=== PATIENT | female | born 1990 | race Hispanic/Latino ===

== ENCOUNTER → 2016-10-23 | Outpatient (CLI) | payer OTHER ==
[~2016-10-23] MED LIST: /ONDA4TA OR; ACET65TA OR; BACT800T PO; CIPR500T19 OR; COLA100C PO; DEPO-PROVERA SC; IBUP-1114 PO; KEFL250C OR; LEVA500T OR; LEVO150T7 PO; LEVO175T2 PO; MAGN400T5 PO; MIRALEX PO; MOM30SS PO; MOTR200T44 PO; NO HOME MEDS; PAXI20TA3 PO; PHEN100T2 OR; PROM-190 PO; PYRI200T PO; TRAZ100T2 PO; TYLE325T5 PO; TYLENOL #3 OR; VICO5TAB OR; levaquin PO; motrin; motrin PO
[2016-10-23 19:05] LABS: FREE T4 1.59 NG/DL (0.76-1.46)
== END ==
LOC: M SMT 13:41
PROVIDERS: ATTEND Specialist
DX: O99.283 Endocrine, nutritional and metabolic diseases complicating pregnancy, third trimester (principal); E07.9 Disorder of thyroid, unspecified

== ENCOUNTER → 2017-11-25 | Outpatient (REF) | payer OTHER | LOC: M LAB REF 14:52 | DX: Z12.4 Encounter for screening for malignant neoplasm of cervix (principal) ==

== ENCOUNTER → 2017-11-25 | Outpatient (CLI) | payer OTHER ==
[2017-11-25 15:13] LABS: CHLAMYDIA DNA AMPLIFICATION NEGATIVE (NEGATIVE); GC DNA AMPLIFICATION NEGATIVE (NEGATIVE)
[2017-11-25 19:47] LABS: HEMATOCRIT 38.6 % (36.0-47.0); HEMOGLOBIN 12.1 g/dl (12.0-16.0); MEAN CORPUSCULAR HEMOGLOBIN 27.4 pg (27.0-33.0); MEAN CORPUSCULAR HGB CONC 31.3 g/dl (32.0-36.5); MEAN CORPUSCULAR VOLUME 87.3 fl (80.0-96.0); PLATELET COUNT, AUTOMATED 271 10^3/uL (150-450); RED BLOOD COUNT 4.42 10^6/uL (4.00-5.40); RED CELL DISTRIBUTION WIDTH 18.3 % (11.5-14.5); WHITE BLOOD COUNT 9.9 10^3/uL (4.0-10.0)
== END ==
LOC: M SMT 11:55
DX: N93.9 Abnormal uterine and vaginal bleeding, unspecified (principal)
CPT/HCPCS: 84443

== ENCOUNTER → 2017-12-05 | Outpatient (CLI) | payer OTHER | LOC: M RAD 14:27 | DX: N92.6 Irregular menstruation, unspecified (principal) | CPT/HCPCS: 76856 ==

== ENCOUNTER 2018-02-14 20:31 | Emergency (ER) | payer MEDICAID, SELFPAY, OTHER | END 2018-02-14 22:59 | disposition home or self-care (01) | LOC: M ED 20:31 | DX: S61.216A Laceration without foreign body of right little finger without damage to nail, initial encounter (principal); W26.0XXA Contact with knife, initial encounter; Y92.9 Unspecified place or not applicable; Y93.G3 Activity, cooking and baking; Y99.9 Unspecified external cause status; E03.9 Hypothyroidism, unspecified; Z79.899 Other long term (current) drug therapy; Z91.013 Allergy to seafood | CPT/HCPCS: 12001; 99284 ==

== ENCOUNTER 2018-04-29 22:20 | Emergency (ER) | payer MEDICAID | END 2018-04-30 00:37 | disposition left against medical advice (07) | LOC: M ED 22:20 | DX: L98.9 Disorder of the skin and subcutaneous tissue, unspecified (principal); Z53.21 Procedure and treatment not carried out due to patient leaving prior to being seen by health care provider ==

== ENCOUNTER → 2018-10-29 | Outpatient (CLI) | payer MEDICAID ==
[~2018-10-29] MED LIST changes: -COLA100C PO; +COLA100C5 PO
--- NOTE | 2018-10-29 15:03 | REP ---
ULTRASOUND LEFT BREAST: Real-time sonographic evaluation of the left breast is performed for a palpable lump in the left breast at about 9-o'clock position, present for a few weeks. Dense fibroglandular tissue is seen in this region. Note is made, however, of a hypoechoic solid appearing nodule at the 1-o'clock position about 1 cm from the nipple. Maximum diameter is about 1 cm. It is oval in shape and relatively homogeneous and well defined with increased through transmission. This probably represents a fibroadenoma. IMPRESSION: ACR 3 probably benign. No evidence of cystic or solid mass in the region of 9 to 10-o'clock left breast at the site of the reported palpable lump. However, at 1-o'clock there is a hypoechoic nodule 1 cm from the nipple with a maximum diameter of 1 cm. It is well defined and demonstrates increased through transmission and homogeneous echotexture. It probably represents a fibroadenoma. Recommend followup ultrasound in 6 months to ensure stability. Alternatively, if the patient desires, ultrasound guided biopsy could be performed for a definitive diagnosis. Electronically Signed by Jerry Ogden MD 10/29/2018 03:52 P
== END ==
LOC: M RAD 13:47
PROVIDERS: ATTEND Advanced Practice Midwife
DX: N63.0 Unspecified lump in unspecified breast (principal)

== ENCOUNTER 2018-12-16 23:39 | Emergency (ER) | payer MEDICAID ==
[~2018-12-16] VITALS: Ht 160 cm; Wt 51.8 kg
[2018-12-17] MEDS ORDERED: KETOROLAC 30 MG/ML VIAL (J1885) IV ONE (00:45)
[2018-12-17] MEDS ORDERED: MORPHINE 2 MG/ML 1ML SYRINGE (J2270) IV ONE (00:45)
[2018-12-17] MEDS ORDERED: CLINDAMYCIN 600 MG in APPROPRIATE DILUENT 1 EA IV ONE (00:45)
[2018-12-17 01:19] LABS: BASO % 0.2 % (0.0-1.0); EOS # 0.2 10^3/uL (0.0-0.50); EOS % 1.4 % (0.0-3.0); HEMATOCRIT 30.6 % (36.0-47.0); HEMOGLOBIN 10.1 g/dl (12.0-15.5); LYMPH # 2.5 10^3/uL (1.5-6.5); MEAN CORPUSCULAR HEMOGLOBIN 30.7 pg (27.0-33.0); MONO # 0.5 10^3/uL (0.0-0.8); NEUTROPHILS # 7.2 10^3/uL (1.8-7.7); PLATELET COUNT, AUTOMATED 254 10^3/uL (150-450); RED BLOOD COUNT 3.29 10^6/uL (4.00-5.40); WHITE BLOOD COUNT 10.4 10^3/uL (4.0-10.0)
[2018-12-17 01:39] LABS: ERYTHROCYTE SEDIMENTATION RATE 58 mm/hr (0-20)
[2018-12-17 01:40] LABS: BLOOD UREA NITROGEN 15 MG/DL (7-18); C REACTIVE PROTEIN QUANTITATIV < 0.30 MG/DL (0.00-0.30); CALCIUM LEVEL 8.4 MG/DL (8.5-10.1); CARBON DIOXIDE LEVEL 24 MEQ/L (21-32); CHLORIDE LEVEL 110 MEQ/L (98-107); CREATININE FOR GFR 0.92 MG/DL (0.55-1.30); GLOMERULAR FILTRATION RATE > 60.0 (>60); GLUCOSE, FASTING 79 MG/DL (70-100); POTASSIUM SERUM 3.9 MEQ/L (3.5-5.1); SODIUM LEVEL 141 MEQ/L (136-145)
[2018-12-17] MEDS ORDERED: NORCOTAB PO (02:14)
[2018-12-17] MEDS ORDERED: CLEO300C2 PO (02:14)
[2018-12-17] MEDS ORDERED: KETO10TAB PO (02:14)
[2018-12-17] MEDS ORDERED: NORCO 5/325MG TABLET (BULK FOR ED) PO ONE (02:15)
[2018-12-17 02:51] VITALS: BP 126/81
--- NOTE | 2018-12-17 09:08 | REP ---
RIGHT 5TH DIGIT: Four views of the right 5th digit are performed. There is significant soft tissue swelling of the 5th digit. There is no evidence of acute fracture, dislocation or intrinsic bone disease. Electronically Signed by Jerry Ogden MD 12/17/2018 03:57 P
== END 2018-12-17 02:52 | disposition home or self-care (01) ==
LOC: M ED 23:39
DX: M96.89 Other intraoperative and postprocedural complications and disorders of the musculoskeletal system (principal); F41.9 Anxiety disorder, unspecified; E05.00 Thyrotoxicosis with diffuse goiter without thyrotoxic crisis or storm; Z79.890 Hormone replacement therapy; Z91.013 Allergy to seafood
CPT/HCPCS: 73140; 80048; 85025; 85652; 86140; 87070; 87077; 87186; 87205; 96365; 96375; 99284; J1885; J2270

== ENCOUNTER → 2019-05-05 | Outpatient (CLI) | payer OTHER ==
[~2019-05-05] MED LIST changes: -/ONDA4TA OR; +CLEO300C2 PO; +HYDR-3715 PO; +KETO10TAB PO; +ONDA-1 OR
[2019-05-05 13:52] LABS: HCG, SERUM QUALITATIVE NEGATIVE (NEGATIVE)
[2019-05-05 14:03] LABS: FREE THYROXINE INDEX 0.1 % (1.3-4.8); T UPTAKE 24 % (30-39); THYROXINE (T4) < 0.5 UG/DL (4.5-12.0)
== END ==
LOC: M SMT 09:56
PROVIDERS: ATTEND Advanced Practice Midwife
DX: N92.6 Irregular menstruation, unspecified (principal); E07.9 Disorder of thyroid, unspecified; N87.0 Mild cervical dysplasia

== ENCOUNTER → 2019-07-14 | Outpatient (CLI) | payer OTHER ==
[2019-07-14 18:19] LABS: HEMATOCRIT 30.3 % (36.0-47.0); HEMOGLOBIN 10.1 g/dl (12.0-15.5); MEAN CORPUSCULAR HEMOGLOBIN 32.1 pg (27.0-33.0); MEAN CORPUSCULAR HGB CONC 33.3 g/dl (32.0-36.5); MEAN CORPUSCULAR VOLUME 96.2 fl (80.0-96.0); PLATELET COUNT, AUTOMATED 206 10^3/uL (150-450); RED BLOOD COUNT 3.15 10^6/uL (4.00-5.40)
[2019-07-14 18:41] LABS: CALCIUM LEVEL 8.8 MG/DL (8.5-10.1); CREATININE FOR GFR 1.45 MG/DL (0.55-1.30); FREE T4 0.1 NG/DL (0.76-1.46); GLOMERULAR FILTRATION RATE 45.8 (>60); MAGNESIUM LEVEL 2.1 MG/DL (1.8-2.4)
== END ==
LOC: M SMT 13:58
PROVIDERS: ATTEND Hospitalist
DX: E05.00 Thyrotoxicosis with diffuse goiter without thyrotoxic crisis or storm (principal); R00.2 Palpitations

== ENCOUNTER → 2019-07-29 | Outpatient (REF) | payer OTHER | LOC: M SFHCPLAZ 15:56 | DX: Z53.9 Procedure and treatment not carried out, unspecified reason (principal) ==

== ENCOUNTER → 2019-08-04 | Outpatient (CLI) | payer OTHER ==
[2019-08-04 14:00] LABS: APPEARANCE, URINE CLEAR (CLEAR); BACTERIA, URINE AUTO NEGATIVE (NEGATIVE); BILIRUBIN, URINE AUTO NEGATIVE (NEGATIVE); BLOOD, URINE BLOOD NEGATIVE (NEGATIVE); COLOR, URINE YELLOW (YELLOW); GLUCOSE, URINE (UA) AUTO NEGATIVE (NEGATIVE); KETONE, URINE AUTO NEGATIVE (NEGATIVE); LEUKOCYTE ESTERASE, URINE AUTO NEGATIVE (NEGATIVE); MUCUS, URINE SMALL (NEGATIVE); NITRITE, URINE AUTO NEGATIVE (NEGATIVE); PROTEIN, URINE AUTO NEGATIVE (NEGATIVE); RBC, URINE AUTO 1 /HPF (0-3); SPECIFIC GRAVITY URINE AUTO 1.018 (1.002-1.035); SQUAMOUS EPITHELIAL CELL UR AU 1 /HPF (0-6); UROBILINOGEN, URINE AUTO 0.2 mg/dL (0.0-2.0); WBC, URINE AUTO 4 /HPF (0-3)
[2019-08-06 14:17] LABS: C-PEPTIDE 1.8 ng/mL (1.1-4.4); INSULIN LEVEL 5.7 uIU/mL (2.6-24.9)
== END ==
LOC: M SMT 10:01
PROVIDERS: ATTEND Hospitalist
DX: R94.4 Abnormal results of kidney function studies (principal); R55 Syncope and collapse

== ENCOUNTER → 2019-08-23 | Outpatient (CLI) | payer OTHER ==
[2019-08-23 17:54] LABS: ALBUMIN 4.4 GM/DL (3.2-5.2); ALT/SGPT 19 U/L (12-78); BILIRUBIN,TOTAL 0.3 MG/DL (0.2-1.0); BLOOD UREA NITROGEN 21 MG/DL (7-18); CALCIUM LEVEL 9.1 MG/DL (8.5-10.1); CARBON DIOXIDE LEVEL 26 MEQ/L (21-32); CHLORIDE LEVEL 106 MEQ/L (98-107); CREATININE FOR GFR 0.96 MG/DL (0.55-1.30); FREE T4 0.95 NG/DL (0.76-1.46); GLOMERULAR FILTRATION RATE > 60.0 (>60); GLUCOSE, FASTING 102 MG/DL (70-100); POTASSIUM SERUM 3.8 MEQ/L (3.5-5.1); SODIUM LEVEL 139 MEQ/L (136-145); TOTAL PROTEIN 8.3 GM/DL (6.4-8.2)
== END ==
LOC: M PLALAB 11:52
PROVIDERS: ATTEND Hospitalist
DX: R00.2 Palpitations (principal); R94.4 Abnormal results of kidney function studies; E03.2 Hypothyroidism due to medicaments and other exogenous substances

== ENCOUNTER → 2019-10-05 | Outpatient (CLI) | payer OTHER ==
[2019-10-05 11:57] LABS: HEMATOCRIT 34.8 % (36.0-47.0); HEMOGLOBIN 11.4 g/dl (12.0-15.5); MEAN CORPUSCULAR HEMOGLOBIN 30.7 pg (27.0-33.0); MEAN CORPUSCULAR HGB CONC 32.8 g/dl (32.0-36.5); MEAN CORPUSCULAR VOLUME 93.8 fl (80.0-96.0); PLATELET COUNT, AUTOMATED 216 10^3/uL (150-450); RED BLOOD COUNT 3.71 10^6/uL (4.00-5.40)
[2019-10-05 13:37] LABS: FERRITIN 6 NG/ML (8-252); IRON (FE) 30 UG/DL (50-170)
== END ==
LOC: M PLALAB 10:25
PROVIDERS: ATTEND Physician Assistant
DX: D50.0 Iron deficiency anemia secondary to blood loss (chronic) (principal)

== ENCOUNTER → 2019-10-07 | Outpatient (REF) | payer OTHER ==
[2019-10-07 17:23] LABS: ALBUMIN 4.2 GM/DL (3.2-5.2); ALT/SGPT 12 U/L (12-78); BILIRUBIN,TOTAL 0.3 MG/DL (0.2-1.0); BLOOD UREA NITROGEN 13 MG/DL (7-18); CALCIUM LEVEL 8.8 MG/DL (8.5-10.1); CARBON DIOXIDE LEVEL 25 MEQ/L (21-32); CHLORIDE LEVEL 107 MEQ/L (98-107); CREATININE FOR GFR 0.94 MG/DL (0.55-1.30); FREE T4 0.69 NG/DL (0.76-1.46); GLOMERULAR FILTRATION RATE > 60.0 (>60); GLUCOSE, FASTING 76 MG/DL (70-100); POTASSIUM SERUM 4.3 MEQ/L (3.5-5.1); SODIUM LEVEL 139 MEQ/L (136-145)
== END ==
LOC: M SFHCPLAZ 13:31
DX: E03.2 Hypothyroidism due to medicaments and other exogenous substances (principal); D50.0 Iron deficiency anemia secondary to blood loss (chronic)

== ENCOUNTER → 2019-11-29 | Outpatient (CLI) | payer OTHER ==
[2019-11-29 14:06] LABS: FREE T4 0.91 NG/DL (0.76-1.46); THYROID STIMULATING HORMONE 30.6 uIU/ML (0.358-3.740)
== END ==
LOC: M PLALAB 11:09
PROVIDERS: ATTEND Hospitalist
DX: E03.2 Hypothyroidism due to medicaments and other exogenous substances (principal)

== ENCOUNTER 2020-05-07 14:05 | Emergency (ER) | payer OTHER ==
[~2020-05-07 14:05] MED LIST changes: +LIDOCAINE VISCOUS 2% SOLN 15ML UDC As Ordered ONE; +LIDOCAINE VISCOUS 2% SOLN 15ML UDC ONE
== END 2020-05-07 15:50 | disposition home or self-care (01) ==
LOC: M ED 14:05
DX: K04.7 Periapical abscess without sinus (principal); E03.9 Hypothyroidism, unspecified; Z79.899 Other long term (current) drug therapy

== ENCOUNTER 2020-05-19 05:58 | Emergency (ER) | payer OTHER ==
[~2020-05-19] VITALS: Ht 160 cm; Wt 51.8 kg
[~2020-05-19 05:58] MED LIST changes: -LIDOCAINE VISCOUS 2% SOLN 15ML UDC As Ordered ONE; -LIDOCAINE VISCOUS 2% SOLN 15ML UDC ONE
[2020-05-19] MEDS ORDERED: ESCI10TA2 (06:11)
[2020-05-19] MEDS ORDERED: PERC5TAB12 (06:11)
[2020-05-19] MEDS ORDERED: LEVO150T7 (06:11)
[2020-05-19] MEDS ORDERED: PENI500T (06:11)
[2020-05-19] MEDS ORDERED: LIDOCAINE 2% W/ EPINEPHRINE 1.7 ML DENTAL INJ SM ONE (07:30)
[2020-05-19 08:29] VITALS: BP 98/53
== END 2020-05-19 08:30 | disposition home or self-care (01) ==
LOC: M ED 05:58
DX: K08.89 Other specified disorders of teeth and supporting structures (principal); E03.9 Hypothyroidism, unspecified; Z91.013 Allergy to seafood; Z79.899 Other long term (current) drug therapy

== ENCOUNTER 2020-05-29 22:05 | Emergency (ER) | payer OTHER ==
[~2020-05-29] VITALS: Ht 160 cm; Wt 51.9 kg
[~2020-05-29 22:05] MED LIST changes: +ESCI10TA2; +LEVO150T7; +PENI500T; +PERC5TAB12
[2020-05-29 22:07] VITALS: BP 142/83
[2020-05-29] MEDS ORDERED: ACET650T61 PO (22:38)
[2020-05-29] MEDS ORDERED: NAPR-837 PO (23:52)
[2020-05-29] MEDS ORDERED: CLIN150C14 PO (23:52)
== END 2020-05-30 00:11 | disposition home or self-care (01) ==
LOC: M ED 22:05
DX: K04.7 Periapical abscess without sinus (principal); Z91.013 Allergy to seafood; Z79.899 Other long term (current) drug therapy

== ENCOUNTER 2020-06-09 23:58 | Emergency (ER) | payer OTHER ==
[~2020-06-09] VITALS: Ht 160 cm; Wt 51.2 kg
[~2020-06-09 23:58] MED LIST changes: +ACET650T61 PO; +CLIN150C14 PO; +NAPR-837 PO
[2020-06-10 00:35] LABS: HEMATOCRIT 36.8 % (36.0-47.0); HEMOGLOBIN 12.1 g/dl (12.0-15.5); MEAN CORPUSCULAR HEMOGLOBIN 29.8 pg (27.0-33.0); MEAN CORPUSCULAR HGB CONC 32.9 g/dl (32.0-36.5); MEAN CORPUSCULAR VOLUME 90.6 fl (80.0-96.0); PLATELET COUNT, AUTOMATED 341 10^3/uL (150-450); RED BLOOD COUNT 4.06 10^6/uL (4.00-5.40); WHITE BLOOD COUNT 11.4 10^3/uL (4.0-10.0)
[2020-06-10 00:39] LABS: ETHYL ALCOHOL (ETHANOL) 0.107 % (0.000-0.010)
--- NOTE | 2020-06-10 00:49 | REPVR ---
PROCEDURE INFORMATION: Exam: CT Head Without Contrast Exam date and time: 06/10/2020 12:04 AM Age: 30 years old Clinical indication: Injury or trauma; Fall; Initial encounter; Concussion / head injury and wound, open; Consciousness not specified; Forehead; Without residual foreign body TECHNIQUE: Imaging protocol: Computed tomography of the head without contrast. Radiation optimization: All CT scans at this facility use at least one of these dose optimization techniques: automated exposure control; mA and/or kV adjustment per patient size (includes targeted exams where dose is matched to clinical indication); or iterative reconstruction. COMPARISON: CT Head without contrast 10/14/2013 3:04 AM FINDINGS: Brain: Normal. No hemorrhage. Unremarkable white matter. No mass effect. Ventricles: Normal. No ventriculomegaly. Bones/joints: Unremarkable. No acute fracture. Sinuses: Mild mucosal thickening in the right maxillary sinus. Mastoid air cells: Visualized mastoid air cells are well aerated. Soft tissues: Unremarkable. IMPRESSION: No acute intracranial hemorrhage. Electronically signed by: Antelmo Campbell On 06/10/2020 00:48:42 AM
--- NOTE | 2020-06-10 00:51 | REPVR ---
PROCEDURE INFORMATION: Exam: CT Cervical Spine Without Contrast Exam date and time: 06/10/2020 12:04 AM Age: 30 years old Clinical indication: Neck pain; Patient HX: Fall; Additional info: Trauma TECHNIQUE: Imaging protocol: Computed tomography images of the cervical spine without contrast. Radiation optimization: All CT scans at this facility use at least one of these dose optimization techniques: automated exposure control; mA and/or kV adjustment per patient size (includes targeted exams where dose is matched to clinical indication); or iterative reconstruction. COMPARISON: No relevant prior studies available. FINDINGS: Vertebrae: No acute fracture. Normal alignment. C2-C3: No significant disc protrusion. No severe spinal canal stenosis. No significant neural foraminal narrowing. C3-C4: No significant disc protrusion. No severe spinal canal stenosis. No significant neural foraminal narrowing. C4-C5: No significant disc protrusion. No severe spinal canal stenosis. No significant neural foraminal narrowing. C5-C6: No significant disc protrusion. No severe spinal canal stenosis. No significant neural foraminal narrowing. C6-C7: No significant disc protrusion. No severe spinal canal stenosis. No significant neural foraminal narrowing. C7-T1: No significant disc protrusion. No severe spinal canal stenosis. No significant neural foraminal narrowing. Soft tissues: Unremarkable. Lungs: Lung apices are normal. IMPRESSION: No acute fracture. Electronically signed by: Antelmo Campbell On 06/10/2020 00:50:47 AM
[2020-06-10 00:58] LABS: BLOOD UREA NITROGEN 11 MG/DL (7-18); CALCIUM LEVEL 9.3 MG/DL (8.5-10.1); CARBON DIOXIDE LEVEL 24 MEQ/L (21-32); CHLORIDE LEVEL 110 MEQ/L (98-107); CREATININE FOR GFR 0.84 MG/DL (0.55-1.30); GLOMERULAR FILTRATION RATE > 60.0 (>60); GLUCOSE, FASTING 108 MG/DL (70-100); POTASSIUM SERUM 3.9 MEQ/L (3.5-5.1); SODIUM LEVEL 141 MEQ/L (136-145)
[2020-06-10] MEDS ORDERED: LIDOCAINE W/EPINEPHRINE 1% 20ML VIAL SC ONE (01:15)
[2020-06-10 02:17] VITALS: BP 110/61
== END 2020-06-10 02:18 | disposition home or self-care (01) ==
LOC: M ED 23:58
DX: S01.81XA Laceration without foreign body of other part of head, initial encounter (principal); W01.10XA Fall on same level from slipping, tripping and stumbling with subsequent striking against unspecified object, initial encounter; Y92.410 Unspecified street and highway as the place of occurrence of the external cause; F10.929 Alcohol use, unspecified with intoxication, unspecified; F17.210 Nicotine dependence, cigarettes, uncomplicated; Z91.013 Allergy to seafood
CPT/HCPCS: 12002; 36415; 70450; 72125; 80048; 85027; 99284; G0480

== ENCOUNTER 2020-06-12 01:46 | Emergency (ER) | payer OTHER ==
[~2020-06-12] VITALS: Ht 160 cm; Wt 50.0 kg
[2020-06-12] MEDS ORDERED: KETO10TAB PO (02:25)
[2020-06-12] MEDS ORDERED: KETOROLAC 30 MG/ML 1ML VIAL IM ONE (02:30)
[2020-06-12 03:00] VITALS: BP 113/76
== END 2020-06-12 03:15 | disposition home or self-care (01) ==
LOC: M ED 01:46
DX: K08.89 Other specified disorders of teeth and supporting structures (principal); Z91.013 Allergy to seafood
CPT/HCPCS: 84702; 96372; 99283; J1885

== ENCOUNTER 2020-06-17 01:49 | Emergency (ER) | payer OTHER ==
[~2020-06-17] VITALS: Ht 160 cm; Wt 50.9 kg
[2020-06-17] MEDS ORDERED: LEXA1TAB PO (02:02)
[2020-06-17] MEDS ORDERED: KEFL500C17 PO (02:56)
[2020-06-17] MEDS ORDERED: CEPHALEXIN 500 MG CAP PO ONE (03:00)
[2020-06-17] MEDS ORDERED: LIDOCAINE 2% MDV 20ML VIAL SC ONE (03:00)
--- NOTE | 2020-06-17 03:00 | REPVR ---
PROCEDURE INFORMATION: Exam: XR Right Hand Exam date and time: 06/17/2020 2:22 AM Age: 30 years old Clinical indication: Injury or trauma; Injury history: Car door; Initial encounter; Laceration; Right; Little finger TECHNIQUE: Imaging protocol: XR Right hand. Views: 3 or more views. COMPARISON: CR Hand, complete 09/26/2014 3:27 PM FINDINGS: Bones/joints: Acute 5th middle phalangeal fracture appears to extend to the proximal interphalangeal joint. Soft tissues: Laceration of the 5th finger. IMPRESSION: Laceration of the 5th finger. Acute 5th middle phalangeal fracture appears to extend to the proximal interphalangeal joint. Electronically signed by: Arturo Dickerson On 06/17/2020 02:59:30 AM
[2020-06-17 03:34] VITALS: BP 138/72
== END 2020-06-17 03:37 | disposition home or self-care (01) ==
LOC: M ED 01:49
DX: S62.606B Fracture of unspecified phalanx of right little finger, initial encounter for open fracture (principal); W23.1XXA Caught, crushed, jammed, or pinched between stationary objects, initial encounter; Y92.019 Unspecified place in single-family (private) house as the place of occurrence of the external cause; Z91.013 Allergy to seafood; Z79.899 Other long term (current) drug therapy

== ENCOUNTER 2020-09-10 20:51 | Emergency (ER) | payer OTHER ==
[~2020-09-10 20:51] MED LIST changes: +KEFL500C17 PO; +LEXA1TAB PO
[2020-09-10 20:55] VITALS: BP 131/83
== END 2020-09-10 22:00 | disposition home or self-care (01) ==
LOC: EDBD 20:51 → M ED 21:49
DX: F41.9 Anxiety disorder, unspecified (principal); Z79.899 Other long term (current) drug therapy

== ENCOUNTER 2020-10-18 10:16 | Emergency (ER) | payer OTHER ==
[~2020-10-18] VITALS: Ht 160 cm; Wt 58.5 kg
[~2020-10-18 10:16] MED LIST changes: -CLIN150C14 PO; +CLIN150C15 PO; +ESCI10TA16; -ESCI10TA2
--- OUTSIDE RECORDS SUMMARY | 2020-10-18 10:21 | CCD ---
Author Author [facility] Organization [facility] Address Unknown Phone Unavailable Care Team Providers Care Product Steward Name Role Phone Ramesh Robles PA Unavailable Unavailable RoblesRamesh weaver PA Unavailable Unavailable RoblesRamesh weaver PA Unavailable Unavailable Robles, L Mel PA Unavailable Unavailable Robles L Mel PA Unavailable Unavailable Robles, L Mel PA Unavailable Unavailable Robles, L Mel PA Unavailable Unavailable RoblesRamesh Mel PA Unavailable Unavailable Robles, L Mel PA Unavailable Unavailable Robles, L Mel PA Unavailable Unavailable Robles L Mel PA Unavailable Unavailable Robles, L Mel PA Unavailable Unavailable Robles, L Mel PA Unavailable Unavailable Robles, L Mel PA Unavailable Unavailable Robles, L Mel PA Unavailable Unavailable Robles, L Mel PA Unavailable Unavailable Robles, L Mel PA Unavailable Unavailable Robles, L Mel PA Unavailable Unavailable Robles, L Mel PA Unavailable Unavailable Robles, L Mel PA Unavailable Unavailable Robles, L Mel PA Unavailable Unavailable Robles, L Mel PA Unavailable Unavailable Robles, L Mel PA Unavailable Unavailable Robles, L Mel PA Unavailable Unavailable Robles, L Mel PA Unavailable Unavailable Robles, L Mel PA Unavailable Unavailable Robles, L Mel PA Unavailable Unavailable Robles, L Mel PA Unavailable Unavailable Robles, L Mel PA Unavailable Unavailable Robles, L Mel PA Unavailable Unavailable Robles, L Mel PA Unavailable Unavailable Robles, L Mel PA Unavailable Unavailable Robles, L Mel PA Unavailable Unavailable Robles, L Mel PA Unavailable Unavailable Robles, L Mel PA Unavailable Unavailable Robles, L Mel PA Unavailable Unavailable Olivier, M Barratt PA Unavailable Unavailable Olivier, M Barratt PA Unavailable Unavailable Olivier, M Barratt PA Unavailable Unavailable Olivier, M Barratt PA Unavailable Unavailable Olivier, M Barratt PA Unavailable Unavailable Olivier, M Barratt PA Unavailable Unavailable Olivier, M Barratt PA Unavailable Unavailable Olivier, M Barratt PA Unavailable Unavailable Olivier, M Barratt PA Unavailable Unavailable Olivier, M Barratt PA Unavailable Unavailable Olivier, M Barratt PA Unavailable Unavailable Olivier, M Barratt PA Unavailable Unavailable Olivier, M Barratt PA Unavailable Unavailable Olivier, M Barratt PA Unavailable Unavailable Olivier, M Barratt PA Unavailable Unavailable Olivier, M Barratt PA Unavailable Unavailable Olivier, M Barratt PA Unavailable Unavailable Olivier, M Barratt PA Unavailable Unavailable Olivier, M Barratt PA Unavailable Unavailable Olivier, M Barratt PA Unavailable Unavailable Olivier, M Barratt PA Unavailable Unavailable Olivier, M Barratt PA Unavailable Unavailable Olivier, M Barratt PA Unavailable Unavailable Olivier, M Barratt PA Unavailable Unavailable Olivier, M Barratt PA Unavailable Unavailable Olivier, M Barratt PA Unavailable Unavailable Olivier, M Barratt PA Unavailable Unavailable LETTIERE, A MARIA TERESA PA Unavailable Unavailable LETTIERE, A MARIA TERESA PA Unavailable Unavailable LETTIERE, A MARIA TERESA PA Unavailable Unavailable LETTIERE, A MARIA TERESA PA Unavailable Unavailable LETTIERE, A MARIA TERESA PA Unavailable Unavailable LETTIERE, A MARIA TERESA PA Unavailable Unavailable LETTIERE, A MARIA TERESA PA Unavailable Unavailable LETTIERE, A MARIA TERESA PA Unavailable Unavailable LETTIERE, A MARIA TERESA PA Unavailable Unavailable LETTIERE, A MARIA TERESA PA Unavailable Unavailable LETTIERE, A MARIA TERESA PA Unavailable Unavailable LETTIERE, A MARIA TERESA PA Unavailable Unavailable LETTIERE, A MARIA TERESA PA Unavailable Unavailable LETTIERE, A MARIA TERESA PA Unavailable Unavailable LETTIERE, A MARIA TERESA PA Unavailable Unavailable LETTIERE, A MARIA TERESA PA Unavailable Unavailable LETTIERE, A MARIA TERESA PA Unavailable Unavailable LETTIERE, A MARIA TERESA PA Unavailable Unavailable LETTIERE, A MARIA TERESA PA Unavailable Unavailable LETTIERE, A MARIA TERESA PA Unavailable Unavailable LETTIERE, A MARIA TERESA PA Unavailable Unavailable LETTIERE, A MARIA TERESA PA Unavailable Unavailable LETTIERE, A MARIA TERESA PA Unavailable Unavailable LETTIERE, A MARIA TERESA PA Unavailable Unavailable LETTIERE, A MARIA TERESA PA Unavailable Unavailable LETTIERE, A MARIA TERESA PA Unavailable Unavailable LETTIERE, A MARIA TERESA PA Unavailable Unavailable LETTIERE, A MARIA TERESA PA Unavailable Unavailable LETTIERE, A MARIA TERESA PA Unavailable Unavailable Re-disclosure Warning The records that you are about to access may contain information from federally-assisted alcohol or drug abuse programs. If such information is present, then the following federally mandated warning applies: This information has been disclosed to you from records protected by federal confidentiality rules (42 CFR part 2). The federal rules prohibit you from making any further disclosure of this information unless further disclosure is expressly permitted by the written consent of the person to whom it pertains or as otherwise permitted by 42 CFR part 2. A general authorization for the release of medical or other information is NOT sufficient for this purpose. The Federal rules restrict any use of the information to criminally investigate or prosecute any alcohol or drug abuse patient.The records that you are about to access may contain highly sensitive health information, the redisclosure of which is protected by Article 27-F of the [facility] Public Health law. If you continue you may have access to information: Regarding HIV / AIDS; Provided by facilities licensed or operated by the [facility] Office of Mental Health; or Provided by the [facility] Office for People With Developmental Disabilities. If such information is present, then the following [facility] mandated warning applies: This information has been disclosed to you from confidential records which are protected by state law. State law prohibits you from making any further disclosure of this information without the specific written consent of the person to whom it pertains, or as otherwise permitted by law. Any unauthorized further disclosure in violation of state law may result in a fine or senior living sentence or both. A general authorization for the release of medical or other information is NOT sufficient authorization for further disc losure. Family History Family Member Name Family Member Gender Family Member Status Date o f Status Description Data Source(s) Unknown Unknown Problem MEDENT ([facility]) Unknown Unknown Problem MEDENT ([facility]) Encounters Encounter Providers Location Date Indications Data Source(s ) Outpatient Attender: Jose SANTAMARIA Physical Therapy 10:45:00 AM EDT MEDENT ([facility]) [place] [address] 12/11/2019 12:00:00 AM EDT eCW1 ([facility]) Outpatient [id number] 11/25/2019 09:29:22 AM EST [facility] Outpatient Attender: MARIA TERESA hagen 10/29/2019 08:30:00 AM EST MEDENT ([facility] [place] [address] 10/25/2019 12:00:00 AM EST eCW1 ([facility]) [address] 10/25/2019 12:00:00 AM EST eCW1 ([facility]) [address] 10/13/2019 12:00:00 AM EST eCW1 ([facility]) Outpatient Attender: Mel Parikher: Sanjay SANTAMARIA SJJose [email or web address] 10/11/2019 09:41:03 AM EST - 10/11/2019 10:04:00 AM EST [facility] GME Resident [address] [place], [place] [id number] 10/07/2019 12:00:00 AM EST eCW1 ([facility]) [facility] [address] [address] 10/07/2019 12:00:00 AM EST eCW1 ([facility]) Outpatient Referrer: Mel PEREIRA-SJPTANYA 09:53:26 AM EST [facility] Outpatient Attender: Mel PEREIRA-SJPTANYA 01:11:36 PM EST - 09/17/2019 04:09:50 PM EST [facility] Medications Medication Brand Name Start Date Product Form Dose Route Admi nistrative Instructions Pharmacy Instructions Status Indications Reaction Description Data Source(s) 5-325 mg 06/22/2020 12:00:00 AM EDT tablet 12 TAKE ONE TABLET BY MOUTH EVERY 6 HOURS NEEDED FOR PAIN MAXIMUM DAILY DOSE = 4 TAKE ONE TABLET BY MOUTH EVERY 6 HOURS NEEDED FOR PAIN MAXIMUM DAILY DOSE = 4 SOLD: 06/23/2020 [facility] 800 mg 06/22/2020 12:00:00 AM EDT tablet 20 TAKE ONE TABLET BY MOUTH EVERY 6 HOURS WITH FOOD NEEDED FOR PAIN TAKE ONE TABLET BY MOUTH EVERY 6 HOURS W ITH FOOD NEEDED FOR PAIN SOLD: 06/23/2020 [facility] Cephalexin 500 MG Oral Capsule CEPHALEXIN 06/17/2020 12:00:00 AM EDT capsule 20 TAKE ONE CAPSULE BY MOUTH EVERY 12 HOURS TAKE ONE CAPS ULE BY MOUTH EVERY 12 HOURS SOLD: 06/19/2020 [facility] 10 mg 06/12/2020 12:00:00 AM EDT tablet 20 TAKE ONE TABLET BY MOUTH EVERY 6 HOURS NEEDED FOR PAIN TAKE ONE TABLET BY MOUTH EVERY 6 HOURS A S NEEDED FOR PAIN SOLD: 06/19/2020 [facility] 500 mg 05/30/2020 12:00:00 AM EDT tablet 30 TAKE ONE TABLET BY MOUTH TWICE A DAY WITH FOOD TAKE ONE TABLET BY MOUTH TWICE A DAY WITH FOOD SOLD: 05/30/2020 [facility] 150 mcg 05/30/2020 12:00:00 AM EDT tablet 30 TAKE ONE TABLET BY MOUTH EVERY DAY TAKE ONE TABLET BY MOUTH EVERY DAY SOLD: 07/15/2020 [facility] 150 mcg 05/30/2020 12:00:00 AM EDT tablet 30 TAKE ONE TABLET BY MOUTH EVERY DAY TAKE ONE TABLET BY MOUTH EVERY DAY SOLD: 06/04/2020 [facility] 150 mcg 05/30/2020 12:00:00 AM EDT tablet 30 TAKE ONE TABLET BY MOUTH EVERY DAY TAKE ONE TABLET BY MOUTH EVERY DAY SOLD: 08/18/2020 [facility] 150 mcg 05/30/2020 12:00:00 AM EDT tablet 30 TAKE ONE TABLET BY MOUTH EVERY DAY TAKE ONE TABLET BY MOUTH EVERY DAY SOLD: 09/30/2020 [facility] 500 mg 05/30/2020 12:00:00 AM EDT tablet 21 TAKE ONE TABLET BY MOUTH THREE TIMES A DAY TAKE ONE TABLET BY MOUTH THREE TIMES A DAY SOLD: 05/30/2020 [facility] Escitalopram 10 MG Oral Tablet ESCITALOPRAM OXALATE 04/27/2020 1 2:00:00 AM EDT tablet 30 TAKE ONE TABLET BY MOUTH EVERY D AY TAKE ONE TABLET BY MOUTH EVERY DAY SOLD: 05/30/2020 [facility] 20 mg 04/27/2020 12:00:00 AM EDT capsule,delayed release (DR/EC) 30 TAKE ONE CAPSULE BY MOUTH EVERY DAY TAKE ONE CAPSULE BY MOUTH EVERY DAY SOLD: 04/30/2020 [facility] Escitalopram 10 MG Oral Tablet ESCITALOPRAM OXALATE 04/27/2020 1 2:00:00 AM EDT tablet 30 TAKE ONE TABLET BY MOUTH EVERY D AY TAKE ONE TABLET BY MOUTH EVERY DAY SOLD: 04/30/2020 [facility] 150 mcg 12/13/2019 12:00:00 AM EDT tablet 30 TAKE ONE TABLET BY MOUTH EVERY MORNING ON AN EMPTY STOMACH TAKE ONE TABLET BY MOUTH EVERY MORNING O N AN EMPTY STOMACH SOLD: 04/11/2020 [facility] Levothyroxine Sodium 0.15 MG Oral Tablet Levothyroxine Sodium 150 MCG Levothyroxine Sodium 150 MCG 12/13/2019 12:00:00 AM EDT active 1 tablet in the morning on an empty stomach eCW1 ([facility]) 150 mcg 12/13/2019 12:00:00 AM EDT tablet 30 TAKE ONE TABLET BY MOUTH EVERY MORNING ON AN EMPTY STOMACH TAKE ONE TABLET BY MOUTH EVERY MORNING O N AN EMPTY STOMACH SOLD: 12/18/2019 [facility] 150 mcg 12/13/2019 12:00:00 AM EDT tablet 30 TAKE ONE TABLET BY MOUTH EVERY MORNING ON AN EMPTY STOMACH TAKE ONE TABLET BY MOUTH EVERY MORNING O N AN EMPTY STOMACH SOLD: 02/25/2020 [facility] Oseltamivir 75 MG Oral Capsule Oseltamivir Phosphate 10/29/2019 12:00:00 AM EST ORAL active MEDENT ( [facility]) 75 mg 10/29/2019 12:00:00 AM EST capsule 10 TAKE ONE CAPSULE BY MOUTH TWICE A DAY FOR 5 DAYS TAKE ONE CAPSULE BY MOUTH TWICE A DAY FOR 5 DAYS SOLD: 10/31/2019 [facility] 100 mcg 10/26/2019 12:00:00 AM EST tablet 30 TAKE ONE TABLET BY MOUTH EVERY MORNING ON AN EMPTY STOMACH TAKE ONE TABLET BY MOUTH EVERY MORNING O N AN EMPTY STOMACH SOLD: 10/28/2019 [facility] Levothyroxine Sodium 0.1 MG Oral Tablet Levothyroxine Sodium 100 MCG Levothyroxine Sodium 100 MCG 10/25/2019 12:00:00 AM EST active 1 tablet in the morning on an empty stomach eC1 ([facility]) Levothyroxine Sodium 0.1 MG Oral Tablet Levothyroxine Sodium 100 MCG Levothyroxine Sodium 100 MCG 10/25/2019 12:00:00 AM EST active 1 tablet in the morning on an empty stomach eCW1 ([facility]) 75 mcg 10/08/2019 12:00:00 AM EST tablet 30 TAKE ONE TABLET BY MOUTH EVERY MORNING ON EMPTY STOMACH TAKE ONE TABLET BY MOUTH EVERY MORNING O N EMPTY STOMACH SOLD: 10/11/2019 [facility] 325 mg (65 mg iron) 10/08/2019 12:00:00 AM EST tablet 30 TAKE 1 TABLET BY MOUTH ON Friday AND FRIDAY TAKE 1 TABLET BY MOUTH ON AND FRIDAY SOLD: 10/11/2019 [facility] 75 mcg 07/17/2019 12:00:00 AM EDT tablet 30 TAKE ONE TABLET BY MOUTH EVERY MORNING ON AN EMPTY STOMACH TAKE ONE TABLET BY MOUTH EVERY MORNING O N AN EMPTY STOMACH SOLD: 08/23/2019 [facility] Insurance Providers Payer name Policy type / Coverage type Policy ID Covered libertarian ID Covered libertarian's relationship to live Policy Live Plan Information [facility] [id number] SP [id number] [facility] O [id number] S [id number] [facility] [id number] SP [id number] [facility] [id number] Emmie [id number] MVP MCDO [id number] SP [id number] [employer] Maintenance Organization (HMO) [id number] Self [id number] [employer] (HMO) [id number] Self [id number] MEDICAID [id number] SP [id number] MVP I [id number] Self [id number] MVP I [id number] Self [id number] MVP Medicaid Health Maintenance Organization (HMO) [id number] Self [id number] MVP Medicaid Commercial [id number] Self [id number] MEDICAID M [id number] Self [id number] [employer] Health Maintenance Organization (HMO) [id number] Self [id number] Medicaid [place] Medicaid [id number] Self [id number] MVP I [id number] Self [id number] MVP I [id number] Self [id number] SELF PAY ONLY [id number] SP [id number] MVP MCDHMO [id number] SP [id number] MVP HEALTH CARE O [id number] S [id number] MVP MCDO [id number] SP [id number] MVP Medicaid Health Maintenance Organization (HMO) [id number] Self [id number] [employer] Health Maintenance Organization (HMO) [id number] Self [id number] [facility] COMMUN[employer] PLAN MCDHMO [id number] SP [id number] [facility] Health Maintenance Organization (HMO) Self [employer] COMMUNITY PLAN MCDHMO [id number] SP [id number] [facility] COMMUN[employer] PLAN MCDO [id number] SP [id number] SELF PAY UNAVAILABLE UNAVAILA BLE MEDICAID [id number] SP [id number] [facility] [id number] SP [id number] Problems, Conditions, and Diagnoses Code Display Name Description Problem Type Effective Dates Data Source(s) D50.0 [id number] Iron deficiency anemia due to chronic blo od loss Problem 10/07/2019 12:00:00 AM EST eCW1 ([facility]) R55 Syncope and collapse Syncope and collapse Diagnosis 10/11/2019 09:41:03 AM [facility] R00.2 Palpitations Palpitations Diagnosis 10/11/2019 09:41:03 A M [facility] E03.9 Hypothyroidism, unspecified Hypothyroidism, unspecifie d Diagnosis 09/17/2019 01:11:36 PM [facility] F17.200 Nicotine dependence, unspecified, uncomp licated Nicotine dependence, unspecified, uncomp Diagnosis 09/17/2019 01:11:36 PM [facility] R07.89 Other chest pain Other chest pain Diagnosis 09/17/2019 01 :11:36 PM [facility] R06.02 Shortness of breath Shortness of breath Diagnosis 1 11/18/2018 01:11:36 PM [facility] 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 Surgeries/Procedures Procedure Description Date Indications Data Source(s) RADEX WRIST COMPLETE MINIMUM 3 VIEWS 10/11/2020 12:00: 00 AM EST MEDENT ([facility]) RADEX FINGR MINIMUM 2 VIEWS 07/12/2020 12:00:00 AM EDT MEDENT ([facility]) RADEX FINGR MINIMUM 2 VIEWS 07/12/2020 12:00:00 AM EDT MEDENT ([facility]) RADEX FINGR MINIMUM 2 VIEWS 06/28/2020 12:00:00 AM EDT MEDENT ([facility]) CLTX PHLNGL FX PROX/MIDDLE PX/F/T W/O MANJ EA 06/20/20 12:00:00 AM EDT MEDENT ([facility]) Results ID Date Data Source [id number] 10/11/2019 12:41:19 PM [facility] Name Value Range Interpretation Code Description Data Azalea rce(s) Supporting Document(s) &PDF [facility] ZVXMKo7vMqLTQpAd19/KWVruOUKzq6QnXCrwTHj2GBwlCKXkF1CfaXqlDYOQJTHTQhkSZHvTR3BWQC7x oRX RmKjZFoTH9JM8xVBTykdQqkvE6nF1oFL3BJNQ+Ro3SSZ4fd3IeYPd0WNRid2IoBRwdQLb6I7FzaXXjfw IqTtsyeWJXSVBvMJWsQ5gdmdn8yUZoKZE4Zb5VWdRzp4ErXCOyZJpLnr8mL2/bRhZ+X2D/wwCLBVLAiX i/eXvZUbwqtronFmLbgzAWkONPHvkQicakwb2jyiLR Ol/od9D9WKWMiWH41br2N9kfDCwG7e4+gRckq2fQFt5pe4dyh29h3h//YEdyCOtU6tKmsSi0eiFhh4bT kHCDOt0SPf22TzhLnm9P8iy6fR7EzBRz+PlP1/4W/mEPEW3o/xnGZxj18aa43VyHFRwrQ181TiYw4zTV ZK4KIIRIGwlFYpFXMltvBXg1sFoelEmdHh9foViQQB /lmrLiyII/JOFlmjZ1Vp12+mnth7Q133xmwjzglwfyUgvKUQlfDkcQzJoTSGh35OvXY9OQ+ZtowcAzMX UdTa0FMite2kU/eAqkhTxxocLai7tW9M7HqljauaNsksNoBgE3OPDdAocGMEiqJI8zGrS5oCvMlHSMYt I5Sc4GYrMs+KSj1wdberhrxo78qA7Gnm0B9c3ICkPg HET+u5/17vPWjb90PtXdnXMrLkrbirhbmIUxGp6MHWY1my5jT2+egyFSt41AHMabaN4gcsV54GYK7fyS cPIlwiGrvqP3Lp0/tuiNqbYEc3bhQCmEhivBdzNGkoivRzHzELqEnHiZcxgjWMta6SKH/VJSaEkTS569 XLUuXKz1lR8iuyIUP/qhHo7iImld7SlkuyPbfjWyQ9 20s1bunPO7Z0A7M9KjZABHeOMGDwPqbCQzaVk6XyR3f8fRK2/PXGxACZxK3FWkxA5OghAxkdtw/Yeoey eAnSIzA4K/tO2BALMUoYh1MAJNzHIG6WBQ6vMGhAUDuYYwGGFcD5XToQQfumeGlVAa+HKkzwDdF0/Byron qWyeMJ5V+deLA3WXM0psJiu+S6pQolgohFpCsUWouD mI7ZsaLRo1HzIcVWHhPnlQXSkgnnubNDFlkO/bSyB3/VMSJ/5B8NVDc9Bb8dNgWqPUsVNxbj9SRL1cah B2x899Zq9zlY+ZBtCDFAOJfuVuZT8u14luCzowkeV17t3mzyzNxrSB9vJXyLyRZXRCtPtYN5xnUlBJby 7AZMmlIM3xA8VQIrKYadP2zXKWDTT838VJEULIbFw2 itrEfUQ47wl30RlAu1OgY5mMSrEihzWO1u6ipPtX4J9PKSQ6lPltA/qpy3Tlx6xAEfgBI85iVkMPJIWk AgB+Do4sU0Z5BFEAB22KhUUoJYtSbZClSZSh4EmkOxFzxSCBVcnrdrlhs+uXOdtATgCyUYdP5A//7ScI WWRSSYotcfHUDFIFECK3xnpEG2OMNX6UeB9lcsrpCe [file] AgICAgICAgICAgICAgICAgICAgICAgICAgICAgICAg ICAgICAgICAgICAgICAgICAgICAgICAgICAgICAgICAgICAgICAgICAgICAgICAgICAgICAgICAgICAg PTPxRUDyJU2CXVTaVGQaKIFkLHEpWUNlDURlLUNiJMWdORMqARFaPDWzWLSbJNSaAHEpVLDyFZCrGZIj ICAgICAgICAgICAgICAgICAgICAgICAgICAgICAgIC OiWQQwHAWmXWRsTLVoVPSnVX4COYNuKBRwJKFvVWLzFDGuZRXnQZIiSEZeSUMlXLZcRWKzDRKqJZRoHW AgICAgICAgICAgICAgICAgICAgICAgICAgICAgICAgICAgICAgICAgICAgICAgICAgICAgICAgICAgIA 0KICAgICAgICAgICAgICAgICAgICAgICAgICAgICAg ICAgICAgICAgICAgICAgICAgICAgICAgICAgICAgICAgICAgICAgICAgICAgICAgICAgICAgICAgICAg LUCgLZJuDMDfBZ0VOUIqOAOjFMTfFQFnAYCsDKSgGWNiSIFgBVMdUTAvNNXcRPFdQIQgBVLhBFJwXBSv ICAgICAgICAgICAgICAgICAgICAgICAgICAgICAgIC XkJXArOSDxUGCyYAVbNMJhMRJeJD4VZDVqROPrOGJiWTCgLQOmWQGxROAxPZOcOCTaCMVgJQFfOHQaRG AgICAgICAgICAgICAgICAgICAgICAgICAgICAgICAgICAgICAgICAgICAgICAgICAgICAgICAgICAgIC ItJJ2XJSGcAJArBZSnHGLkMDGiIFKhRCPlENCaMNYi ICAgICAgICAgICAgICAgICAgICAgICAgICAgICAgICAgICAgICAgICAgICAgICAgICAgICAgICAgICAg ZXOuRNHtYJGiSOCwXE5EXIPbHEKzWVWbWZHxBFDnTPIbSEHqGSOnSLAcXXGrRDEyLELxGXYaRENdKURv ICAgICAgICAgICAgICAgICAgICAgICAgICAgICAgIC BxWGMgLRWrWDDpLGKqADIxXLDbDEGyJO4PXBNsGKWrOUCySAXpWBQtMEMgDYBxLUGvFJXuRIWwVBNvRY AgICAgICAgICAgICAgICAgICAgICAgICAgICAgICAgICAgICAgICAgICAgICAgICAgICAgICAgICAgIC FtDNQsRG7LGQRjYRJaGOHsAQDhUZDqUQUdSPEnQOBt ICAgICAgICAgICAgICAgICAgICAgICAgICAgICAgICAgICAgICAgICAgICAgICAgICAgICAgICAgICAg UWGoHLGuOIYlTWVhHBBdPM9AXM52jTGia2B5AKKhIA8vfqy/Jo0YAZsfzwWauNQnNU4GDaZcCO2ffv1W LyWjUC1izb5TACvGIeCbC2B8vPAwDLEiMYFMMwJzV7 7dSZshCv09QXpkSQFxZqCqYOy1Tw1ZOvAuX6pbXCLbQpO0NTNgMtU8GPPwMlYrCNwlLK8As7IufTYkSY o+Ba9ABZ0ch7RmSVbkBWInHF3klt0CPQbFTePvA1O3jAJjJ1K0OKwtFm8UKPDdOISfWVtcGUYSZWubBK 9LRQ9qjpE5OQ5IiFHsGQXnFCZikTLpOTz5H60lqSMk VWotQB2PEDQ+Idania+Iu9KVCNcHYFeALMgOaSmCHUQVzQuY04yeEKsNONmOHFzZLWaJx0SPSTwX2PtwtTo vPxtubXbLODcLGKLEB2FJHajfvHtbOCxwFnbIR98pFzgEK3ULf5RBuXeOO8mav4WsRVePy0KVCRxWf8C BKIrNSOtATZtUSK8FUNbEsLlORbeXKIxIYTfHXI7DL GmDTMpFM3KUzThBDEyPAj8UtQlKKZcAOVymf1NUZLsEZGvGZPdLaRvXBRuSMErPCarXQBxBXVsOVkgMH ToWQHjXR9TUrNqYSZgQFYjIUQrFXAwOPJjns6ULQMpJURqVqKxZAEzOOQxHIVnKJhmCYTkEOM8Kxe8VR YaCQGhTI0GUxXfFVQqURQkHCJuVREjXCArrp8OSXBf APXfMSg2TIZfIMEsIEQhYViyDUHvFNX4GHNtJOQaOYYwDB8KFfRcQEVoUZElZYfjOHVoJIUbhm7FSLNj NWClHzBsNfRsNBIcJDApPCqxFDQzBVF8VUA1MEOeSGLzDN4LRvRtJAAqGKv1SVkcOVFtMLErqm6JJUYr ZJCyAZQ2ZZKxDQPwDQYxGNcaOVJsGHJ8LDR6UPUyOA QdME7ULhBuCEZvYDmgWbQwSZFhZLQmgi0EFTDmRRHdRKraWpBqXSMsYXLvSWrcZQPzDIH4NgXnZYOvTH YkTB9VFrChVBIiIOcxYjFkOMAbPUEfki6NBPUqPPHdIYJcChZxFFNrRDGxJHt0uuEfaGNgDQw0CY4EV2 ZryhXnVcCISf2Do109EOHgBDPhVz4JE2ueLf8oVPBe UBLDHi0CNKe5MbHeIBg7O1YmYDKeIFChRpJsZAJxEJx6CfUyJttvTQN+ZOcaP5W5JTy0RnMwCRS7QGIv OrIlA7HnIexqMdGbQMGbJv4tNFQZIo7+GMizjOXwiEscSEFXEzE1CQUcTRdsHIVRZd3U ID Date Data Source [id number] 09/30/2019 06:11:45 PM EST [facility] Name Value Range Interpretation Code Description Data Azalea rce(s) Supporting Document(s) &PDF [facility] JISUUq6cSfBIUmPo10/FEYpuBIDix6BpIVdyGDb6CKskXJAcU0VclPhkZNEQJGSUPpgZACgZQ4GRXE9m FcG [file] YNCg== ID Date Data Source TSH 08/23/2019 12:00:00 AM EST eCW1 ([facility]) Name Value Range Interpretation Code Description Data Azalea rce(s) Supporting Document(s) 17.300 0.358-3.740 THYROID STIMULATING HORM ONE eCW1 ([facility]) ID Date Data Source FREE T4 08/23/2019 12:00:00 AM EST eCW1 ([facility]) Name Value Range Interpretation Code Description Data Azalea rce(s) Supporting Document(s) 0.95 0.76-1.46 FREE T4 W1 ([facility]) ID Date Data Source METANEPHRINES TOTAL PLASMA 08/23/2019 12:00:00 AM EST eCW1 ( [facility]) Name Value Range Interpretation Code Description Data Azalea rce(s) Supporting Document(s) 58 0-62 METANEPHRINE PLASMA eCW1 ([facility]) 201 0-145 NORMETANEPHRINE PLASMA eCW1 ([facility]) ID Date Data Source Comprehensive Metabolic Profile (CMP) 08/23/2019 12:00:00 AM EST eCW1 ([facility]) Name Value Range Interpretation Code Description Data Azalea rce(s) Supporting Document(s) 21 7-18 BLOOD UREA NITROGEN eCW1 ([facility]) 0.96 0.55-1.30 CREATININE FOR GFR eCW1 ([facility]) 102 70-100 GLUCOSE, FASTING eCW1 ([facility]) 3.8 3.5-5.1 POTASSIUM SERUM eCW1 ([facility] hospital) 139 136-145 SODIUM LEVEL eCW1 ([facility]) > 60.0 >60 GLOMERULAR FILTRATION RATE eCW 1 ([facility]) 17 7-37 AST/SGOT eCW1 ([facility]) 26 21-32 CARBON DIOXIDE LEVEL eCW1 ([facility]) 106 98-107 CHLORIDE LEVEL eCW1 ([facility]) 9.1 8.5-10.1 CALCIUM LEVEL eCW1 ([facility]) 54 45-117 ALKALINE PHOSPHATASE eCW1 ([facility]) 8.3 6.4-8.2 TOTAL PROTEIN eCW1 ([facility]) 19 12-78 ALT/SGPT eCW1 ([facility]) 0.3 0.2-1.0 BILIRUBIN,TOTAL eCW1 ([facility]) 4.4 3.2-5.2 ALBUMIN eCW1 ([facility]) 1.13 1.00-1.93 ALBUMIN/GLOBULIN RATIO eCW1 ([facility]) Procedure Vital Signs ID Date Data Source UNK Name Value Range Interpretation Code Description Data Source(s) Body temperature 98.0 [degF] 98.0 [degF] MEDENT ([facility] ) Body mass index (BMI) [Ratio] 20.4 kg/m2 20.4 k g/m2 MEDENT ([facility] ) Body weight 115.00 [lb_av] 115.00 [lb_av] MEDEN T ([facility] ) Body height 63 [in_i] 63 [in_i] MEDENT ([facility] ) 5'3" Body temperature 97.3 [degF] 97.3 [degF] MEDENT ([facility] ) Body mass index (BMI) [Ratio] 20.2 kg/m2 20.2 k g/m2 MEDENT ([facility], [facility]) Body height 63 [in_i] 63 [in_i] MEDENT ([facility], [facility]) 5'3" Body weight 114.00 [lb_av] 114.00 [lb_av] MEDEN T ([facility], [facility]) Body temperature 98.7 [degF] 98.7 [degF] MEDENT ([facility], [facility]) Oxygen saturation in Arterial blood by Pulse oximetry 98 % 98 % MEDENT ([facility], [facility]) Respiratory rate 18 /min 18 /min MEDENT ( [facility], [facility]) Heart rate 79 /min 79 /min MEDENT ([facility], [facility]) Diastolic blood pressure 68 mm[Hg] 68 mm[Hg] MEDENT ([facility], [facility]) Systolic blood pressure 102 mm[Hg] 102 mm[Hg] EDENT ([facility], [facility]) Body temperature 18 [degF] 18 [degF] eCW1 ([facility]) Respiratory rate 70 /min 70 /min eCW1 ([facility]) Body mass index (BMI) [Ratio] 18.78 kg/m2 18.78 kg/m2 W1 ([facility]) Body height 63 [in_us] 63 [in_us] eCW1 ([facility]) Body weight Measured 106 [lb_av] 106 [lb_av] eC W1 ([facility]) Patient Treatment Plan of Care Planned Activity Planned Date Details Description Data Source (s) Levothyroxine Sodium 0.15 MG Oral Tablet 12/13/2019 12:00:00 AM EDT eCW1 ([facility]) Levothyroxine Sodium 0.1 MG Oral Tablet 10/25/2019 12:00:00 AM EST eCW1 ([facility]) Levothyroxine Sodium 0.1 MG Oral Tablet 10/25/2019 12:00:00 AM EST eCW1 ([facility])
--- OUTSIDE RECORDS SUMMARY | 2020-10-18 10:21 | CCD ---
Continuity of Care Document (CCD) Created on: 10/11/2020 Leti Barrett External Reference #: [id number] : 1990 Sex: Female Author Author Leti OLIVIER Organization Unknown Address [address] [place] [address] Phone [phone] Care Team Providers Care Gelatin Maker Utility Name Role Phone Faheem Morrow DO AUTM [phone] Santosh Menjivar MD AUTHerman Unavailable Problems Description No Information Available Social History Type Date Description Comments Sex Unknown ETOH Use Rarely consumes alcohol Tobacco Use Start: Unknown Denies Smoking Smoking Status Reviewed: 04/28/19 Denies Smoking Allergies, Adverse Reactions, Alerts Description No Known Drug Allergies Medications Active Medications SIG Qnty Indications Ordering Provide r Date Levothyroxine Sodium 200mcg/5ML So lution Valerio Rosen MD 04/28/2019 Lexapro 10mg Tablets 1 by mouth every day Unknown Immunizations Description No Information Available Vital Signs Date Vital Result Comment 07/12/2020 3:16pm Body Temperature 98.0 F 06/20/2020 11:22am Body Temperature 97.3 F Height 63 inches 5'3" Weight 115.00 lb BMI (Body Mass Index) 20.4 kg/m2 Results Description No Information Available Procedures Date Code Description Status 10/11/2020 72890 X-Ray Wrist Complete Completed 07/12/2020 46774 X-Ray Finger(S) Two Views Comple alina 06/28/2020 44661 X-Ray Finger(S) Two Views Comple alina 06/20/2020 87914 FX Phalanx Shaft/Prox/Mid Finger /Thumb W/O Manipulation Completed Medical Devices Description No Information Available Encounters Type Date Location Provider Dx Diagnosis Office Visit 06/20/2020 10:45a [place] Jose Olivier PA-C S6 1.226A Laceration w fb of r little finger w/o damage to nail, init S62.656A Nondisp fx of middle phalanx of right little finger, init Assessments Date Code Description Provider 10/11/2020 S62.656D Nondisplaced fractur e of middle phalanx of right little finger, subsequent encounter for fracture with routine healing Jose Olivier PA-C 07/12/2020 S62.656D Nondisplaced fractur e of middle phalanx of right little finger, subsequent encounter for fracture with routine healing Jose Olivier PA-C 06/28/2020 S61.226D Laceration with fore ign body of right little finger without damage to nail, subsequent encounter Jose Olivier PA-C 06/28/2020 S62.656D Nondisplaced fractur e of middle phalanx of right little finger, subsequent encounter for fracture with routine healing Jose Olivier PA-C 06/20/2020 S61.226A Laceration with fore ign body of right little finger without damage to nail, initial encounter Jose Olivier PA-C 06/20/2020 S62.656A Nondisplaced fractur e of middle phalanx of right little finger, initial encounter for closed fracture Jose Olivier PA-C Plan of Treatment 10/11/2020 - Jose Olivier PA-C* S62.656D Nondisplaced fracture of middle phalanx of right little finger, subsequent encounter for fracture with routine healing* New Xrays:* MRI RT Wrist, Ordered: 10/11/20 * Follow up:* with BMS for rt hand mri results [facility] BOOK IT Functional Status Description No Information Available Mental Status Description No Information Available Referrals Refer to Reason for Referral Status Appt Date Jose Olivier PA-C DME NO AUTH REQUIRED FOR APO LLO WRIST BRACE ([id number]) TO OUMAR NT Created [address] [place] [address] [address] [place] [id number] [phone]
--- OUTSIDE RECORDS SUMMARY | 2020-10-18 10:21 | CCD | Continuity of Care Document ---
Author Author Leti OLIVIER Organization Unknown Address [address] [place] [address] Phone [phone] Care Team Providers Care Equipment Service Technician Name Role Phone Faheem Morrow DO AUTM [phone] Santosh Menjivar MD AUTHerman Unavailable Problems Description [...] Information Available Procedures Date Code Description Status 07/12/2020 35764 X-Ray Finger(S) Two Views Comple alina 06/28/2020 63359 X-Ray Finger(S) Two Views Comple alina 06/20/2020 37478 FX Phalanx Shaft/Prox/Mid Finger /Thumb W/O Manipulation Completed Medical Devices Description No Information Available Encounters Type Date Location Provider Dx Diagnosis Office Visit 06/20/2020 10:45a [place] Olivier PA-C S6 1.226A Laceration w fb of r little finger w/o damage to nail, init S62.656A Nondisp fx of middle phalanx of right little finger, init Assessments Date Code Description Provider 07/12/2020 S62.656D Nondisplaced fractur e of middle [...] fracture Jose Olivier PA-C Plan of Treatment 07/12/2020 - Jose Olivier PA-C* S62.656D Nondisplaced fracture of middle phalanx of right little finger, subsequent encounter for fracture with routine healing* Follow up:* prn Functional Status Description No Information Available Mental Status Description No Information Available Referrals Description No Information Available
[2020-10-18] MEDS ORDERED: NS 1,000 ML IV ONE (10:45)
[2020-10-18 11:18] LABS: BASO % 0.2 % (0.0-1.0); HEMATOCRIT 37.8 % (36.0-47.0); HEMOGLOBIN 12.5 g/dl (12.0-15.5); LYMPH # 0.7 10^3/uL (1.5-5.0); LYMPH % 5.1 % (24.0-44.0); MEAN CORPUSCULAR HEMOGLOBIN 29.6 pg (27.0-33.0); MEAN CORPUSCULAR HGB CONC 33.1 g/dl (32.0-36.5); MEAN CORPUSCULAR VOLUME 89.6 fl (80.0-96.0); MONO % 7.5 % (0.0-5.0); NEUTROPHILS # 11.1 10^3/uL (1.5-8.5); NEUTROPHILS % 86.9 % (36.0-66.0); PLATELET COUNT, AUTOMATED 228 10^3/uL (150-450); RED BLOOD COUNT 4.22 10^6/uL (4.00-5.40); WHITE BLOOD COUNT 12.8 10^3/uL (4.0-10.0)
--- OUTSIDE RECORDS SUMMARY | 2020-10-18 11:18 | CCD ---
Author Author [facility] Organization [facility] Address Unknown Phone Unavailable Care Team Providers Care Dietitian Consultant Name Role Phone Ramesh Robles PA Unavailable Unavailable RoblesRamesh weaver PA Unavailable Unavailable RoblesRamesh weaver PA Unavailable Unavailable Robles, L Mel PA Unavailable Unavailable Robles, Ramesh Mel PA Unavailable Unavailable Robles, Ramesh Mel PA Unavailable Unavailable Robles, Ramesh Mel PA Unavailable Unavailable Robles, Ramesh Mel PA Unavailable Unavailable Robles, L Mel PA Unavailable Unavailable Robles, Ramesh Mel PA Unavailable Unavailable Robles, Ramesh Mel PA Unavailable Unavailable Robles, L Mel [...] MARIA TERESA PA Unavailable Unavailable LETTIERE, A MARI ATERESA PA Unavailable Unavailable LETTIERE, A MARIA TERESA [...] is protected by Article 27-F of the [facility] Public Health law. If you continue you may have access to information: Regarding HIV / AIDS; Provided by facilities licensed or operated by the [facility] Office of Mental Health; or Provided by the [facility] Office for People With Developmental Disabilities. If such information is present, then the following [facility] mandated warning applies: This information [...] law may result in a fine or mcc sentence or both. A general authorization for the release of medical or other information is NOT sufficient authorization for further disc losure. Family History Family Member Name Family Member Gender Family Member Status Date o f Status Description Data Source(s) Unknown Unknown Problem MEDENT ([facility] Unknown Unknown Problem MEDENT ([facility]) Encounters Encounter Providers Location Date Indications Data Source(s ) Outpatient Attender: Jose SANTAMARIA Physical Therapy 10:45:00 AM EDT MEDENT ([facility]) [place] [address] 12/11/2019 12:00:00 AM EDT eCW1 ([facility]) Outpatient [id number] 11/25/2019 09:29:22 AM EST [facility] Outpatient Attender: MARIA TERESA hagen 10/29/2019 08:30:00 AM EST MEDENT ([facility] [place] [address] 10/25/2019 12:00:00 AM EST eCW1 ([facility]) [place] [address] 10/25/2019 12:00:00 AM EST eCW1 ([facility]) [address] 10/13/2019 12:00:00 AM EST eCW1 ([facility]) Outpatient Attender: Mel Parikher: Sanjay SANTAMARIA [email or web address] 10/11/2019 09:41:03 AM EST - 10/11/2019 10:04:00 AM EST [facility] GME Resident [address] [place] [address] 10/07/2019 12:00:00 AM EST eCW1 ([facility]) [facility] [address] [facility] [address] 10/07/2019 12:00:00 AM EST eCW1 ([facility]) Outpatient Referrer: Mel PEREIRA-SJPTANYA 09:53:26 AM EST [facility] Outpatient Attender: Mel FRANKSJPTANYA 01:11:36 PM EST - 09/17/2019 04:09:50 PM EST [facility] Medications Medication Brand Name Start Date Product [...] the morning on an empty stomach eCW1 ([facility]) 150 mcg 12/13/2019 12:00:00 AM EDT tablet [...] 12:00:00 AM EST ORAL active MEDENT ( [facility], [facility]) 75 mg 10/29/2019 12:00:00 AM EST capsule [...] in the morning on an empty stomach [place] [facility] ([facility]) Levothyroxine Sodium 0.1 MG Oral Tablet Levothyroxine Sodium 100 MCG Levothyroxine Sodium 100 MCG 10/25/2019 12:00:00 AM EST active 1 tablet in the morning on an empty stomach eCW1 ([facility]) 75 mcg 10/08/2019 12:00:00 AM EST tablet [...] type / Coverage type Policy ID Covered democrat ID Covered democrat's relationship to live Policy Live Plan Information [facility] [id number] SP [id number] [facility] O [id number] S [id number] [facility] [id number] SP [id number] [facility] [id number] Emmie [id number] MVP MCDHMO [id number] SP [id number] [employer] Health Maintenance Organization (HMO) [id number] Self [id number] [employer] Maintenance Organization (HMO) [id number] Self [id number] MEDICAID [id number] SP [id number] MVP I [id number] Self [id number] MVP I [id number] Self [id number] MVP Medicaid Health Maintenance Organization (HMO) [id number] Self [id number] MVP Medicaid Commercial [id number] Self [id number] MEDICAID M [id number] Self [id number] [employer] Health Maintenance Organization (HMO) [id number] Self [id number] Medicaid [place] [id number] Self [id number] MVP I [id number] Self [id number] MVP I [id number] Self [id number] SELF PAY ONLY [id number] SP [id number] MVP MCDHMO [id number] SP [id number] MVP HEALTH CARE O [id number] S [id number] MVP MCDHMO [id number] SP [id number] MVP Medicaid Health Maintenance Organization (HMO) [id number] Self [id number] [employer] Health Maintenance Organization (HMO) [id number] Self [id number] [facility] COMMUNITY PLAN MCDHMO [id number] SP [id number] [facility] Health Maintenance Organization (HMO) Self [employer] COMMUNITY PLAN MCDHMO [id number] SP [id number] [facility] COMMUNITY PLAN MCDO [id number] SP [id number] SELF PAY UNAVAILABLE UNAVAILA BLE MEDICAID [id number] SP [id number] [facility] [id number] SP [id number] Problems, Conditions, and Diagnoses Code Display Name Description Problem Type Effective Dates Data Source(s) D50.0 [id number] Iron deficiency anemia due to chronic blo od loss Problem 10/07/2019 12:00:00 AM EST eCW1 ([facility]) R55 Syncope and collapse Syncope and collapse Diagnosis 10/11/2019 09:41:03 AM [facility] R00.2 Palpitations Palpitations Diagnosis 10/11/2019 09:41:03 A M [facility] E03.9 Hypothyroidism, unspecified Hypothyroidism, unspecifie d Diagnosis 09/17/2019 01:11:36 PM [facility] F17.200 Nicotine dependence, unspecified, uncomp licated Nicotine dependence, unspecified, uncomp Diagnosis 09/17/2019 01:11:36 PM [facility] R07.89 Other chest pain Other chest pain Diagnosis 09/17/2019 01 :11:36 PM [facility] R06.02 Shortness of breath Shortness of breath Diagnosis 1 11/18/2018 01:11:36 PM [facility] 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) Iron deficiency anemia secondary to bloo Diagnosis 09/17/2019 01:11:36 PM [facility] Surgeries/Procedures Procedure Description Date Indications Data Source(s) RADEX WRIST COMPLETE MINIMUM 3 VIEWS 10/11/2020 12:00: 00 AM EST MEDENT ([facility]) RADEX FINGR MINIMUM 2 VIEWS 07/12/2020 12:00:00 AM EDT MEDENT ([facility]) RADEX FINGR MINIMUM 2 VIEWS 07/12/2020 12:00:00 AM EDT MEDENT ([facility]) RADEX FINGR MINIMUM 2 VIEWS 06/28/2020 12:00:00 AM EDT MEDENT ([facility]) CLTX PHLNGL FX PROX/MIDDLE PX/F/T W/O MANJ EA 06/20/20 12:00:00 AM EDT MEDENT ([facility]) Results ID Date Data Source [id number] 10/11/2019 12:41:19 PM [facility] Name Value Range Interpretation Code Description Data Azalea rce(s) Supporting Document(s) &PDF [facility] MMKPDk2nOnHQLaSp03/HKFebASSlp2TnOVonYBv0VMzjSZUqD6HboFkoMBFSBGUGTdkHGRbMB0EUGN5j oRX JkPaWVpTX4ME5iIKCfamScyqG1tJ0mZT4FGFL+Tw4KZB2hv6MhEEe8RVUui3SwGApdOUk4J5FmwNXngq NcPibesGJGHAKeKKOhM2apwom2wYYwONR9Ar3ALzTmi8BxKSYkIOdGfu6kN9/bRhZ+X2D/wwCLBVLAiX i/jFfOJaacxyqkHsLpfhSIiEWEMygLhzbezt6abuRA Ol/pu2Q2KRSIyEF02zw7J5hjLDmI6x7+zEnnk0eFWf5si1avp10e3k//JLpuBBfV5hUonMh3ztAxq3vV xLJKSu6GDv83MuvLbe7A2ot1wI0RuWIf+PlP1/4W/oZLQP0h/aeFQqp85qa15MrTIGdxG056YrLx2zIV TI5CAGOBQjtWExUJDbvcENw8bIqxuJeaZg6mnUeGTD /lmrLiyII/CKGnjfU8Wc92+btnq7P071vlknqefczqPrkYMZadSrmIsZeTZWn34ClJP3CB+ZtowcAzMX ZtDh9NZtai1gY/eZpnbJntsfKdj8jT7N8JewooypDakzPqFoO3ALGvMgbVPEaoPL5gInB1dUjXmEYPPi P6Kt9GUjIl+RSw3ypuxlvnsa58rG5Acj5T1f4QEhFa HET+u5/12eQNji76AsQplEBcAdsqpenoeQOpXx4NBZB4hf8gF1+slsCPo25DGOdrzR6hhmL37CGP0vaP hQAcprMocwN4Sh2/itaVhmFHo9jpBWwDjwmIneIBjenrGeAiBVgLoQjMfvoeLNau7PSX/GVJyFpHO595 GCOzHUq8gU8upyBMK/fsCq1wYltu1ZwixcOtpqUvK2 28y1lceTG4W2N8B4SwURHQzTUNPdPxwMAhxDa5HoK0b0qKC3/AVEaCKIuZ2NYopY5NotTlvcdn/Yeoey kUaBAsO5O/yK7YLXVYdXq5WRGWaQJM4FDL8uYByQSIzIXeFNIdI7KCpFAmrzeOtMWz+HKkzwDdF0/Byron hNabVI3H+fqNU9OTV3euGuz+K6bJahjfzCyZyOQlmS aI6MmbSHz7HfVzACDhQjqVNEmdlmauRYJeeK/bSyB3/VMSJ/1Q8WQTv9Op1pSqTrFHwTCdky9CTH1ebw I6p699Ek1jmH+LDbLNZDKEkfZnCX6o97inVrnbydL92o2incxWudYB3nGXcYyMAWQTvXqMG5fxSaIZmc 2JSTodAL3iC2UXVzQVfaY6aRVXGFZ919URQLSOyZq2 krfTqLA73ym78DnCa2OtC5qAAaIxznJQ5e2pjEpH5W5ZRKV4iKxoE/nyv7Kgk3cFQjmOR15dNuDOCCUq AgB+Jt0eK0F6SVSUC46EgKGvCJbTsYYcNFIs9BvtPeVoqBMFNeehfdlmj+mYSjgDVfUnWXbI8J//7ScI XPSHODiubpCGHOHKGQF2jopCV9QJIN6ZrQ5fymdxEn [file] AgICAgICAgICAgICAgICAgICAgICAgICAgICAgICAg ICAgICAgICAgICAgICAgICAgICAgICAgICAgICAgICAgICAgICAgICAgICAgICAgICAgICAgICAgICAg JPIrBPDfVS0NLSNxZNIwNGVjWLLiBBAqNMYpOKEwCEPbBBVbFBXxRMEfFGCaYIRvMSNtYOUhFNAaKKYt ICAgICAgICAgICAgICAgICAgICAgICAgICAgICAgIC HxYSBbRKSlZOTuZICtRKRiZO1OKUEvLFZlMNOhPAQmSQOmWCSlTQQeKBDoSYBqGPZzVYJzTDWtNUDaZK AgICAgICAgICAgICAgICAgICAgICAgICAgICAgICAgICAgICAgICAgICAgICAgICAgICAgICAgICAgIA 0KICAgICAgICAgICAgICAgICAgICAgICAgICAgICAg ICAgICAgICAgICAgICAgICAgICAgICAgICAgICAgICAgICAgICAgICAgICAgICAgICAgICAgICAgICAg DOXeIXCzQLHhKC2QYVXsOIAzYOGdCMFsNOKnMVCjEAHfCQIuKDNrNSYsPUQaODAqVOKuCUJkLQDbIDOz ICAgICAgICAgICAgICAgICAgICAgICAgICAgICAgIC RnVEVxATPvHGKeDOOzDRGzBVBhIG8SVCZaSKQiAECgILOpPEUoWRZoICQbCADgTTDvDQFrFYEjICQgPR AgICAgICAgICAgICAgICAgICAgICAgICAgICAgICAgICAgICAgICAgICAgICAgICAgICAgICAgICAgIC VxEP0ARSShWBXuHVEmDMBfMUImXMEjCRAnUHSzCOPc ICAgICAgICAgICAgICAgICAgICAgICAgICAgICAgICAgICAgICAgICAgICAgICAgICAgICAgICAgICAg GGGtPODaTJEvCKGdDH3NDJOmPJPiRMPgMEIvTTDyJCPwQPLmFUBpATXlRUYbWIRaIVNvSSRjALWjLIVi ICAgICAgICAgICAgICAgICAgICAgICAgICAgICAgIC DfAFOdRDZaCUXtESOeDGQaALZtIQVoJO4UIUSaUIErYMPxCQJcLTDlPNTuMAEbEJUmGWTxKXFlUMVgCN AgICAgICAgICAgICAgICAgICAgICAgICAgICAgICAgICAgICAgICAgICAgICAgICAgICAgICAgICAgIC BrUZVwHY1IGWLmNSRoKGVvQSLbCSRzUQKhRGHtXISv ICAgICAgICAgICAgICAgICAgICAgICAgICAgICAgICAgICAgICAgICAgICAgICAgICAgICAgICAgICAg QHTrGUVpEYXqGJXzQFOjDG8NBA89yZBof6B8ECQtWC6brvg/Lz8QWWlanqXmwXFgEY9QTsZiGO9pyt9T MfLoVA7zet6NPKiAWzTsO4T1mTIwMUFwOGEETwCqR7 1vFTkeNm41AJasGSChKhQiTRd6Me0YDzHdZ8hsLKTbOuS8SIHxYoA6AHDlAxFzLQmsGO6Xw2XiqPWyVX o+Hm9QTF0wq6CrCMloDFRnJB1dbj1XTJwGZjRmT9F2xRRrO5A5NOdyLp2LWYQiIFCrQYguVZUQAAfhGE 2ISU3vybW9LS8QkEYbEPHdGJMorTWvYWc7P75veLCe DCpuRK6KBUE+Idania+Hh8TDSIjGAXeZMCtHrHhTLFJCsCpM98sfDEvPUXrTBXgCTYpYj6YQHWtX0FwlvMb yPbynxPuVIWgLIUKBZ3OKQkuwcAdoBSltYedBQ49eUfrNY4RYh9HGdXtVQ1uxp9DlWLqBl5JLKOrDm8A JJAyVHEvEVRqRNP5IBVrZxXpTIfyVWSuTINcQRC6JD GaHVWfCN3FXzUvJTXmDCw2IsOjKJPtTAQwmd1UJCAaVOBeTCFhZnGcWKIhAWHtGSttCRXeOKApBTqkZG MyFLPtOK6QMePsRLSmQRFuLPEnXUSoFPWmva5OWQVpPMHxFxEiTUYqTHFaRPGrZQesPYBpBWK4Yvg3SH XmELYeEP4ZFuHhEVMuYXUyERDnOGGgFJLujo3ZAVLo OOCyVFk9FNNqSOBdRPXpXEwnLGWlNDZ4DXJeAPEnWAQmZD8DKrPpTICeJTSuCSyzUJIoFMStqo2LUWLa FUMiPbPeXcJoWMKqDABsCLlmHSDiXLM2DDC1PNAgIFNoBD5IMxGoSWHmUOa2MBynSWXlHIHgnr5OPWMi AEZhHQQ7RTXaYOYeFDWjBUuhBGIaPQF3KNN6SKXdSG DxWB7UUuUdOKJjDYsqIrLkKDXvMNHpin3EUNItPBBmUVxrZcAhGXZvPFGmKIjjLNGiGWW2ZwHkCIKaLJ WjLP2XYaJyWKQvZBclWiToIKZbARRvwz7TCTAfLCGnFMYkOmVnXMFqJOAtOJm8fuHfsGTyKFv3BA9QB1 IzykZrQsFTWy9Ib533MZZmHPUgWy2GD8npWe3iWHLt ELRMWt7KYQk5JaCoHMg5V1PbCXAlEJDlDqFjPIIfMNe4NuWdWfgbLDF+KDanF2B0OUg3UnFhYAX6MVUt PzVjR5CsXtbhLlGaCVFeZn0eHKXIGi2+SUhxvCUnvDxwDLXBKaR4OPVmBBfbVQVWVf9O ID Date Data Source [id number] 09/30/2019 06:11:45 PM EST [facility] Name Value Range Interpretation Code Description Data Azalea rce(s) Supporting Document(s) &PDF [facility] NBBVTb2pRjVAWiTh56/ZPSieSDKza6BtYRvkBVy3XClwWXQzW1BqoFwdIPIAAMZNIcaIWCzUK7WOVS0j FcG [file] YNCg== ID Date Data Source TSH 08/23/2019 12:00:00 AM EST eCW1 [facility] Name Value Range Interpretation Code Description Data Azalea rce(s) Supporting Document(s) 17.300 0.358-3.740 THYROID STIMULATING HORM ONE eCW1 ([facility]) ID Date Data Source FREE T4 08/23/2019 12:00:00 AM EST eCW1 ([facility]) Name Value Range Interpretation Code Description Data Azalea rce(s) Supporting Document(s) 0.95 0.76-1.46 FREE T4 W1 ([facility]) ID Date Data Source METANEPHRINES TOTAL PLASMA 08/23/2019 12:00:00 AM EST eCW1 ( [facility]) Name Value Range Interpretation Code Description Data Azalea rce(s) Supporting Document(s) 58 0-62 METANEPHRINE PLASMA eCW1 ([facility]) 201 0-145 NORMETANEPHRINE PLASMA eCW1 ([facility]) ID Date Data Source Comprehensive Metabolic Profile (CMP) 08/23/2019 12:00:00 AM EST eCW1 ([facility]) Name Value Range Interpretation Code Description Data Azalea rce(s) Supporting Document(s) 21 7-18 BLOOD UREA NITROGEN eCW1 ([facility]) 0.96 0.55-1.30 CREATININE FOR GFR eCW1 ([facility]) 102 70-100 GLUCOSE, FASTING eCW1 ([facility]) 3.8 3.5-5.1 POTASSIUM SERUM eCW1 ([facility]) 139 136-145 SODIUM LEVEL eCW1 ([facility]) > 60.0 >60 GLOMERULAR FILTRATION RATE eCW 1 ([facility]) 17 7-37 AST/SGOT eCW1 ([facility]) 26 21-32 CARBON DIOXIDE LEVEL eCW1 ([facility]) 106 98-107 CHLORIDE LEVEL eCW1 ([facility]) 9.1 8.5-10.1 CALCIUM LEVEL eCW1 ([facility]) 54 45-117 ALKALINE PHOSPHATASE eCW1 ([facility]) 8.3 6.4-8.2 TOTAL PROTEIN eCW1 ([facility]) 19 12-78 ALT/SGPT eCW1 ([facility]) 0.3 0.2-1.0 BILIRUBIN,TOTAL eCW1 ([facility]) 4.4 3.2-5.2 ALBUMIN eCW1 ([facility]) 1.13 1.00-1.93 ALBUMIN/GLOBULIN RATIO eCW1 ([facility]) Procedure Vital Signs ID Date Data Source UNK Name Value Range Interpretation Code Description Data Source(s) Body temperature 98.0 [degF] 98.0 [degF] MEDENT ([facility] Body mass index (BMI) [Ratio] 20.4 kg/m2 20.4 k g/m2 MEDENT ([facility] ) Body weight 115.00 [lb_av] 115.00 [lb_av] MEDEN T ([facility] ) Body height 63 [in_i] 63 [in_i] MEDENT ([facility] ) 5'3" Body temperature 97.3 [degF] 97.3 [degF] MEDENT ([facility] ) Body mass index (BMI) [Ratio] 20.2 kg/m2 20.2 k g/m2 MEDENT ([facility], [facility]) Body height 63 [in_i] 63 [in_i] MEDENT ([facility], [facility]) 5'3" Body weight 114.00 [lb_av] 114.00 [lb_av] MEDEN T ([facility], [facility]) Body temperature 98.7 [degF] 98.7 [degF] MEDENT ([facility], [facility]) Oxygen saturation in Arterial blood by Pulse oximetry 98 % 98 % MEDENT ([facility], [facility]) Respiratory rate 18 /min 18 /min MEDENT ( [facility], [facility]) Heart rate 79 /min 79 /min MEDENT ([facility], [facility]) Diastolic blood pressure 68 mm[Hg] 68 mm[Hg] MEDENT ([facility], [facility]) Systolic blood pressure 102 mm[Hg] 102 mm[Hg] EDENT ([facility], [facility]) Body temperature 18 [degF] 18 [degF] eCW1 ([facility]) Respiratory rate 70 /min 70 /min W1 ([facility]) Body mass index (BMI) [Ratio] 18.78 kg/m2 18.78 kg/m2 W1 ([facility]) Body height 63 [in_us] 63 [in_us] eCW1 ([facility]) Body weight Measured 106 [lb_av] 106 [lb_av] eC W1 ([facility]) Patient Treatment Plan of Care Planned Activity Planned Date Details Description Data Source (s) Levothyroxine Sodium 0.15 MG Oral Tablet 12/13/2019 12:00:00 AM EDT eCW1 ([facility]) Levothyroxine Sodium 0.1 MG Oral Tablet 10/25/2019 12:00:00 AM EST eCW1 ([facility]) Levothyroxine Sodium 0.1 MG Oral Tablet 10/25/2019 12:00:00 AM EST eCW1 ([facility])
[2020-10-18 11:40] LABS: ALBUMIN 3.7 GM/DL (3.2-5.2); BILIRUBIN,DIRECT 0.3 MG/DL (0.0-0.2); BILIRUBIN,TOTAL 0.7 MG/DL (0.2-1.0); TOTAL PROTEIN 7.5 GM/DL (6.4-8.2)
[2020-10-18] MEDS ORDERED: cefTRIAXone SOD 1 GM in D5W MINI-BAG PLUS 50 ML IV ONE (11:45)
[2020-10-18] MEDS ORDERED: KETOROLAC 30 MG/ML 1ML VIAL IV ONE (11:45)
--- NOTE | 2020-10-18 12:49 | REP ---
INDICATION: ruq, right flank pain. COMPARISON: CT 04/21/2016. TECHNIQUE: Real-time sonographic evaluation of right upper quadrant performed. FINDINGS: The gallbladder demonstrates no evidence of intraluminal sludge or calculi, wall thickening or pericholecystic fluid. There is no intrahepatic or extrahepatic biliary dilatation, common bile duct measures 3 mm in maximum diameter. The liver demonstrates homogeneous echotexture with no gross mass. The pancreas demonstrates homogeneous echotexture with no gross mass. The right kidney demonstrates no hydronephrosis, with a normal size of 11.5 cm in length. Rounded hyperechoic area in the upper pole of the right kidney measures 1.3 x 1.8 x 1.3 cm. Subtle mass cannot be excluded.No free fluid is seen. IMPRESSION: No gallstones, gallbladder wall thickening, pericholecystic fluid or biliary dilatation. There appears to be a subtle hyperechoic nodule in the upper pole of the right kidney 1.8 cm in diameter. Recommend follow-up MRI of the kidneys with and without contrast for further evaluation. <Electronically signed by Jerry Ogden > 10/18/20 [id number]
[2020-10-18] MEDS ORDERED: LEVO750T14 PO (13:56)
[2020-10-18] MEDS ORDERED: KETO10TAB PO (13:56)
[2020-10-18] MEDS ORDERED: ACETAMINOPHEN 325 MG TAB PO ONE (14:00)
[2020-10-18 14:02] VITALS: BP 133/61
[2020-10-18] MEDS ORDERED: ISOVUE-370 76% 100ML VIAL As Ordered ONE (14:57)
--- NOTE | 2020-10-18 15:21 | REP ---
INDICATION: right abd pain pyelo vs retrocecal appy COMPARISON: None. TECHNIQUE: CT Scan of the abdomen and pelvis was performed with intravenous administration of 100 cc of Isovue 370, without oral contrast. Sagittal and coronal reconstruction images are performed. FINDINGS: Lung bases: Unremarkable. Liver: There is focal fatty infiltration of the liver anteriorly along the fissure for the ligamentum teres. Gallbladder: Unremarkable. Spleen: Normal. Adrenals: Normal. Pancreas: Normal. Kidneys: There is ill-defined hypodensity in the upper pole of the right renal cortex with adjacent perirenal inflammatory density, consistent with right-sided pyelonephritis. There is no hydronephrosis bilaterally. Small and large bowel: Few mildly dilated small bowel loops in the right abdomen probably represents a mild ileus. Free fluid: None. Abdominal aorta: No aneurysm or dissection. Adenopathy: None. Appendix: Not inflamed. Osseous structures: Unremarkable. Pelvis: No mass. IMPRESSION: Findings compatible with right-sided pyelonephritis. <Electronically signed by Jerry Ogden > 10/18/20 [id number]
--- NOTE | 2020-10-19 11:44 | ED PDOC ---
Post-Departure Follow-Up abdominal us faxed to [facility] dr jacob for fu Velma Paulino MD Oct 19, 2020 11:44
== END 2020-10-18 15:52 | disposition home or self-care (01) ==
LOC: M ED 10:16
DX: N10 Acute pyelonephritis (principal); N39.0 Urinary tract infection, site not specified; N28.89 Other specified disorders of kidney and ureter; Z91.013 Allergy to seafood; Z79.899 Other long term (current) drug therapy
CPT/HCPCS: 36415; 74177; 76705; 80047; 80076; 81001; 84702; 85025; 87088; 87186; 96361; 96365; 96375; 99284; J0696; J1885; Q9967

== ENCOUNTER → 2020-11-01 | Outpatient (REF) | payer OTHER ==
[~2020-11-01] MED LIST changes: +LEVO750T14 PO
== END ==
LOC: M SFHCPLAZ 10:02
PROVIDERS: ATTEND Family Medicine
DX: Z53.9 Procedure and treatment not carried out, unspecified reason (principal); E03.9 Hypothyroidism, unspecified

== ENCOUNTER → 2020-11-10 | Outpatient (CLI) | payer OTHER ==
[~2020-11-10] MED LIST changes: +PROHANCE 279.3MG/ML 15ML VIAL As Ordered ONE
--- NOTE | 2020-11-10 12:42 | REP ---
INDICATION: NODULE OF KIDNEY. Subtle hyperechoic nodule upper pole right kidney, 1.8 cm in diameter noted incidentally on ultrasound 18 October 2020. COMPARISON: Comparison is also made with CT study of the abdomen and kidneys from 18 October 2020.. TECHNIQUE: Axial and coronal T1 and T2 weighted sequences include spin echo, fast spin echo, in and out of phase, and dynamically acquired sequential postcontrast images. FINDINGS: T2 weighted images show no evidence of liver or spleen lesion. Pancreas is unremarkable. Normal adrenal glands are seen. There is no evidence of mass effect in the upper pole the right kidney or are abnormal signal intensity on T2 weighted scans. In and out of phase images are unremarkable. Dynamically acquired sequential postcontrast images demonstrate normal symmetric renal enhancement. The previously noted lesion in the right upper pole of the kidney is resolved. This consistent with in having been a focus of swollen parenchyma due to pyelonephritis. No renal mass lesion is seen. Delayed scan images show no additional abnormality. IMPRESSION: The previously noted right rib upper pole nodule in the right kidney has resolved consistent with resolved pyelonephritis changes. Otherwise negative. <Electronically signed by Linwood Ruiz > 11/10/20 [id number]
== END ==
LOC: M RAD 10:58
PROVIDERS: ATTEND Student in an Organized Health Care Education/Training Program
DX: N28.89 Other specified disorders of kidney and ureter (principal)
CPT/HCPCS: 74183; A9576

== ENCOUNTER → 2021-05-18 | Outpatient (REF) | payer OTHER ==
[~2021-05-18] MED LIST changes: -CLIN150C15 PO; +CLIN150C17 PO; -PROHANCE 279.3MG/ML 15ML VIAL As Ordered ONE
== END ==
LOC: M SFHCPLAZ 14:50
DX: E01.8 Other iodine-deficiency related thyroid disorders and allied conditions (principal); N30.00 Acute cystitis without hematuria

== ENCOUNTER → 2021-05-18 | Outpatient (CLI) | payer OTHER ==
[2021-05-18 17:25] LABS: APPEARANCE, URINE CLEAR (CLEAR); BACTERIA, URINE AUTO 2+ (NEGATIVE); BILIRUBIN, URINE AUTO NEGATIVE (NEGATIVE); BLOOD, URINE BLOOD NEGATIVE (NEGATIVE); COLOR, URINE AMBER (YELLOW); GLUCOSE, URINE (UA) AUTO NEGATIVE (NEGATIVE); KETONE, URINE AUTO NEGATIVE (NEGATIVE); LEUKOCYTE ESTERASE, URINE AUTO NEGATIVE (NEGATIVE); MUCUS, URINE SMALL (NEGATIVE); NITRITE, URINE AUTO POSITIVE (NEGATIVE); PROTEIN, URINE AUTO NEGATIVE (NEGATIVE); RBC, URINE AUTO 1 /HPF (0-3); SPECIFIC GRAVITY URINE AUTO 1.011 (1.002-1.035); SQUAMOUS EPITHELIAL CELL UR AU 3 /HPF (0-6); WBC, URINE AUTO 6 /HPF (0-3)
[2021-05-18 18:09] LABS: FREE T4 0.15 NG/DL (0.76-1.46)
== END ==
LOC: M PLALAB 15:13
PROVIDERS: ATTEND Student in an Organized Health Care Education/Training Program
DX: E01.8 Other iodine-deficiency related thyroid disorders and allied conditions (principal)

== ENCOUNTER 2021-06-16 19:01 | Emergency (ER) | payer OTHER ==
[~2021-06-16] VITALS: Ht 160 cm; Wt 66.4 kg
[2021-06-16 20:06] LABS: BASO % 0.3 % (0.0-1.0); EOS # 0.1 10^3/uL (0.0-0.5); EOS % 0.4 % (0.0-3.0); HEMATOCRIT 31.9 % (36.0-47.0); HEMOGLOBIN 11.2 g/dl (12.0-15.5); LYMPH # 1.5 10^3/uL (1.5-5.0); LYMPH % 10.9 % (24.0-44.0); MEAN CORPUSCULAR HEMOGLOBIN 32.4 pg (27.0-33.0); MEAN CORPUSCULAR HGB CONC 35.1 g/dl (32.0-36.5); MEAN CORPUSCULAR VOLUME 92.2 fl (80.0-96.0); MONO # 0.8 10^3/uL (0.0-0.8); MONO % 6.1 % (2.0-8.0); NEUTROPHILS # 11.2 10^3/uL (1.5-8.5); NEUTROPHILS % 81.9 % (36.0-66.0); PLATELET COUNT, AUTOMATED 254 10^3/uL (150-450); RED BLOOD COUNT 3.46 10^6/uL (4.00-5.40); WHITE BLOOD COUNT 13.7 10^3/uL (4.0-10.0)
[2021-06-16 20:07] LABS: APPEARANCE, URINE HAZY (CLEAR); BILIRUBIN, URINE AUTO NEGATIVE (NEGATIVE); BLOOD, URINE BLOOD NEGATIVE (NEGATIVE); COLOR, URINE YELLOW (YELLOW); GLUCOSE, URINE (UA) AUTO NEGATIVE (NEGATIVE); KETONE, URINE AUTO 1+ mg/dL (NEGATIVE); LEUKOCYTE ESTERASE, URINE AUTO NEGATIVE (NEGATIVE); NITRITE, URINE AUTO NEGATIVE (NEGATIVE); PROTEIN, URINE AUTO NEGATIVE (NEGATIVE); SPECIFIC GRAVITY URINE AUTO 1.014 (1.002-1.035); UROBILINOGEN, URINE AUTO 0.2 mg/dL (0.0-2.0)
[2021-06-16 20:11] LABS: BACTERIA, URINE AUTO NEGATIVE (NEGATIVE); MUCUS, URINE MODERATE (NEGATIVE); RBC, URINE AUTO 1 /HPF (0-3); SQUAMOUS EPITHELIAL CELL UR AU 7 /HPF (0-6); WBC, URINE AUTO 2 /HPF (0-3)
[2021-06-16 21:03] LABS: ALBUMIN 3.7 GM/DL (3.2-5.2); ALT/SGPT 14 U/L (12-78); BILIRUBIN,DIRECT 0.1 MG/DL (0.0-0.2); BILIRUBIN,TOTAL 0.2 MG/DL (0.2-1.0); BLOOD UREA NITROGEN 9 MG/DL (7-18); CALCIUM LEVEL 8.8 MG/DL (8.5-10.1); CARBON DIOXIDE LEVEL 23 MEQ/L (21-32); CHLORIDE LEVEL 106 MEQ/L (98-107); CREATININE FOR GFR 0.68 MG/DL (0.55-1.30); FREE T4 1.78 NG/DL (0.76-1.46); GLOMERULAR FILTRATION RATE > 60.0 (>60); GLUCOSE, FASTING 129 MG/DL (70-100); HCG, SERUM QUANTITATIVE 76701 MIU/ML; POTASSIUM SERUM 3.5 MEQ/L (3.5-5.1); SODIUM LEVEL 138 MEQ/L (136-145); THYROID STIMULATING HORMONE 0.716 uIU/ML (0.358-3.740); TOTAL PROTEIN 7.4 GM/DL (6.4-8.2)
--- NOTE | 2021-06-16 21:39 | REPVR ---
PROCEDURE INFORMATION: Exam: US First Trimester, Transabdominal Exam date and time: 06/16/2021 9:07 PM Age: 31 years old Clinical indication: Pain; Other: Abd / llq; Gestational age or lmp: 13; ; Additional info: Back pain TECHNIQUE: Imaging protocol: Real-time transabdominal obstetrical ultrasound of the maternal pelvis and a first trimester , less than 14 weeks 0 days, with image documentation. COMPARISON: No relevant prior studies available. FINDINGS: Gestation: Single gestational sac in the uterus. Single pole demonstrated within the gestational sac with a crown-rump length of 44.8 mm. Yolk sac measures 8 mm. Embryonic/ heart rate: heart rate is 167 bpm. Extra-embryonic membranes/Placenta: Early placental tissue forming anteriorly. Amniotic fluid: Amniotic fluid/chorionic fluid is normal for gestational age. BIOMETRY: Gestational age (AUA): Gestational age based on crown-rump length is 11 weeks 3 days. Gestational age based on LMP of 03/14/2021 is 13 weeks 3 days. Estimated due date (AUA): KARUNA based on ultrasound is 01/03/2022. MATERNAL: Uterus: Unremarkable. Cervix: Unremarkable. Right adnexa: Unremarkable. Left adnexa: Irregular shaped hypodensity left ovary consistent with an involuting follicle or corpus luteum. Intraperitoneal space: No intraperitoneal free fluid. IMPRESSION: Unremarkable scan at 11 weeks 3 days based on ultrasound measurements. Electronically signed by: George Briceno On 06/16/2021 21:38:44 PM
[2021-06-16] MEDS ORDERED: MULTTAB20 PO (22:08)
[2021-06-16 22:25] VITALS: BP 125/68
== END 2021-06-16 22:26 | disposition home or self-care (01) ==
LOC: M ED 19:01
DX: O26.91 Pregnancy related conditions, unspecified, first trimester (principal); R10.9 Unspecified abdominal pain; Z91.013 Allergy to seafood; Z3A.11 11 weeks gestation of pregnancy

== ENCOUNTER → 2021-06-26 | Outpatient (CLI) | payer OTHER ==
[~2021-06-26] MED LIST changes: +MULTTAB20 PO
[2021-06-26 13:24] LABS: BASO % 0.2 % (0.0-1.0); EOS % 0.2 % (0.0-3.0); HEMATOCRIT 33.9 % (36.0-47.0); HEMOGLOBIN 11.5 g/dl (12.0-15.5); LYMPH # 1.5 10^3/uL (1.5-5.0); LYMPH % 11.9 % (24.0-44.0); MEAN CORPUSCULAR HEMOGLOBIN 31.7 pg (27.0-33.0); MEAN CORPUSCULAR HGB CONC 33.9 g/dl (32.0-36.5); MEAN CORPUSCULAR VOLUME 93.4 fl (80.0-96.0); MONO # 0.9 10^3/uL (0.0-0.8); MONO % 7.1 % (2.0-8.0); NEUTROPHILS # 9.7 10^3/uL (1.5-8.5); NEUTROPHILS % 79.9 % (36.0-66.0); PLATELET COUNT, AUTOMATED 284 10^3/uL (150-450); RED BLOOD COUNT 3.63 10^6/uL (4.00-5.40); WHITE BLOOD COUNT 12.1 10^3/uL (4.0-10.0)
[2021-06-26 14:40] LABS: HIV 1&2 SCREEN CENTAUR NEGATIVE (NEGATIVE)
[2021-06-26 15:17] LABS: GC DNA AMPLIFICATION NEGATIVE (NEGATIVE)
== END ==
LOC: M PLALAB 11:22
PROVIDERS: ATTEND Specialist
DX: Z34.81 Encounter for supervision of other normal pregnancy, first trimester (principal); Z3A.00 Weeks of gestation of pregnancy not specified

== ENCOUNTER → 2021-08-20 | Outpatient (CLI) | payer OTHER ==
--- NOTE | 2021-08-20 09:44 | REP ---
INDICATION: ENCOUNTER FOR SUPERVISION OF OTHER NORMAL PREG IN [address] [place] [address] COMPARISON: 06/16/2021 TECHNIQUE: Transabdominal obstetrical ultrasound with color Doppler evaluation. FINDINGS: Examination demonstrates a single live intrauterine in variable presentation. motion is identified by technologist. Placenta is noted anterior and grade 0 without evidence for placenta previa or abruption. Amniotic fluid volume is normal. Cervix measures 3.4 cm in length and appears closed.. Selected gestational age: 20 weeks 3 days with KARUNA 01/04/2022. Gestational age by current measurements 19 weeks 6 days with KARUNA 01/08/2022. FHR equals 153 beats per minute. Estimated weight 324 grams (23rdpercentile). Anatomical assessment demonstrates normal structures including cranium, choroid plexus, cavum, cerebellum/posterior fossa, facial features, lungs, four-chamber heart/ventricular outflow tracts, diaphragm, stomach, cord insertion/three-vessel cord, kidneys/bladder, spine, and extremities. IMPRESSION: Single live intrauterine demonstrating appropriate interval growth. Anatomical assessment is complete and normal. <Electronically signed by Guero Fan > 08/20/21 [id number]
== END ==
LOC: M WHC 08:38
PROVIDERS: ATTEND Specialist
DX: Z34.82 Encounter for supervision of other normal pregnancy, second trimester (principal); Z3A.20 20 weeks gestation of pregnancy

== ENCOUNTER → 2021-10-10 | Outpatient (CLI) | payer OTHER ==
[2021-10-10 15:52] LABS: MEAN CORPUSCULAR HEMOGLOBIN 28.8 pg (27.0-33.0); MEAN CORPUSCULAR HGB CONC 32.3 g/dl (32.0-36.5); MEAN CORPUSCULAR VOLUME 89.3 fl (80.0-96.0); PLATELET COUNT, AUTOMATED 337 10^3/uL (150-450); RED BLOOD COUNT 3.47 10^6/uL (4.00-5.40); WHITE BLOOD COUNT 17.5 10^3/uL (4.0-10.0)
[2021-10-10 17:35] LABS: GC DNA AMPLIFICATION NEGATIVE (NEGATIVE)
== END ==
LOC: M PLALAB 12:12
PROVIDERS: ATTEND Specialist
DX: Z34.82 Encounter for supervision of other normal pregnancy, second trimester (principal)

== ENCOUNTER → 2021-10-25 | Outpatient (CLI) | payer OTHER | LOC: M LAB 08:18 | PROVIDERS: ATTEND Obstetrics & Gynecology | DX: Z34.92 Encounter for supervision of normal pregnancy, unspecified, second trimester (principal) ==

== ENCOUNTER → 2021-10-31 | Outpatient (CLI) | payer OTHER ==
[2021-10-31 14:51] LABS: FREE T4 1.41 NG/DL (0.76-1.46); THYROID STIMULATING HORMONE 0.88 uIU/ML (0.358-3.740)
== END ==
LOC: M PLALAB 09:28
PROVIDERS: ATTEND Student in an Organized Health Care Education/Training Program
DX: E01.8 Other iodine-deficiency related thyroid disorders and allied conditions (principal)

== ENCOUNTER 2021-12-03 22:03 | Outpatient (CLI) | payer OTHER ==
[~2021-12-03] VITALS: Ht 160 cm; Wt 65.9 kg
[2021-12-03 22:27] VITALS: BP 122/62
[2021-12-03] MEDS ORDERED: ONDANSETRON 4 MG ORAL DISINTEGRATING TAB PO PRN (23:00)
[2021-12-03] MEDS ORDERED: ACET-897 PO (23:03)
[2021-12-03] MEDS ORDERED: LEVO112T2 PO (23:06)
[2021-12-03] MEDS ORDERED: HOME MED LIST COMPLETE! XX SCH (23:10)
[2021-12-03] MEDS ORDERED: ACETAMINOPHEN 500 MG TAB PO ONE (23:35)
[2021-12-04 00:13] VITALS: BP 112/60
[2021-12-04 00:50] LABS: APPEARANCE, URINE HAZY (CLEAR); BACTERIA, URINE AUTO NEGATIVE (NEGATIVE); BILIRUBIN, URINE AUTO NEGATIVE (NEGATIVE); BLOOD, URINE BLOOD NEGATIVE (NEGATIVE); COLOR, URINE AMBER (YELLOW); GLUCOSE, URINE (UA) AUTO NEGATIVE (NEGATIVE); KETONE, URINE AUTO 2+ mg/dL (NEGATIVE); LEUKOCYTE ESTERASE, URINE AUTO NEGATIVE (NEGATIVE); MUCUS, URINE SMALL (NEGATIVE); NITRITE, URINE AUTO NEGATIVE (NEGATIVE); PROTEIN, URINE AUTO 2+ mg/dL (NEGATIVE); RBC, URINE AUTO 0 /HPF (0-3); SPECIFIC GRAVITY URINE AUTO 1.023 (1.002-1.035); SQUAMOUS EPITHELIAL CELL UR AU 2 /HPF (0-6); WBC, URINE AUTO 4 /HPF (0-3)
[2021-12-04] MEDS ORDERED: oxyCODONE 5MG TAB PO ONE (01:00)
== END 2021-12-04 01:20 | disposition home or self-care (01) ==
LOC: M LDO 22:03
PROVIDERS: ATTEND Advanced Practice Midwife
DX: O26.893 Other specified pregnancy related conditions, third trimester (principal); R10.2 Pelvic and perineal pain; O21.8 Other vomiting complicating pregnancy; O99.283 Endocrine, nutritional and metabolic diseases complicating pregnancy, third trimester; E03.9 Hypothyroidism, unspecified; O09.33 Supervision of pregnancy with insufficient antenatal care, third trimester; Z3A.35 35 weeks gestation of pregnancy
CPT/HCPCS: 59025; 81001; 87088; 87186; Q0162

== ENCOUNTER → 2021-12-10 | Outpatient (REF) | payer OTHER ==
[~2021-12-10] MED LIST changes: +ACET-897 PO; +LEVO112T2 PO
== END ==
LOC: M SFHCWAGY 12:42
PROVIDERS: ATTEND Obstetrics & Gynecology
DX: Z36.85 Encounter for antenatal screening for Streptococcus B (principal)

== ENCOUNTER 2022-10-01 23:20 | Emergency (ER) | payer OTHER ==
[~2022-10-01] VITALS: Ht 162.6 cm; Wt 75.8 kg
[2022-10-02 03:50] VITALS: BP 115/68
== END 2022-10-02 04:15 | disposition left against medical advice (07) ==
LOC: M ED 23:20
DX: Z53.21 Procedure and treatment not carried out due to patient leaving prior to being seen by health care provider (principal)

== ENCOUNTER → 2023-02-13 | Outpatient (REF) | payer OTHER | LOC: M PLALAB 16:24 | PROVIDERS: ATTEND Advanced Practice Midwife | DX: Z12.4 Encounter for screening for malignant neoplasm of cervix (principal); R87.5 Abnormal microbiological findings in specimens from female genital organs ==

== ENCOUNTER → 2023-08-11 | Outpatient (CLI) | payer OTHER ==
[2023-08-11 17:29] LABS: HEMATOCRIT 33.8 % (36.0-47.0); HEMOGLOBIN 11.5 g/dl (12.0-15.5); MEAN CORPUSCULAR HEMOGLOBIN 31.3 pg (27.0-33.0); MEAN CORPUSCULAR VOLUME 91.8 fl (80.0-96.0); PLATELET COUNT, AUTOMATED 284 10^3/uL (150-450); RED BLOOD COUNT 3.68 10^6/uL (4.00-5.40); WHITE BLOOD COUNT 9.1 10^3/uL (4.0-10.0)
[2023-08-11 18:01] LABS: FREE T4 0.84 NG/DL (0.89-1.76); THYROID STIMULATING HORMONE 120.802 uIU/ML (0.55-4.78)
[2023-08-11 18:27] LABS: HIV 1&2 SCREEN NEGATIVE (NEGATIVE)
[2023-08-11 18:28] LABS: HEMOGLOBIN A1c 5.1 % (4.0-6.0)
[2023-08-11 18:34] LABS: HEPATITIS C VIRUS ABY INDEX 0.04 INDEX (<0.8)
[2023-08-11 21:43] LABS: CHLAMYDIA DNA AMPLIFICATION NEGATIVE (NEGATIVE); GC DNA AMPLIFICATION NEGATIVE (NEGATIVE)
== END ==
LOC: M PLALAB 14:50
PROVIDERS: ATTEND Advanced Practice Midwife
DX: Z34.81 Encounter for supervision of other normal pregnancy, first trimester (principal); Z3A.00 Weeks of gestation of pregnancy not specified

== ENCOUNTER → 2023-09-12 | Outpatient (CLI) | payer OTHER | LOC: M WHC 09:48 | PROVIDERS: ATTEND Obstetrics & Gynecology | DX: O99.282 Endocrine, nutritional and metabolic diseases complicating pregnancy, second trimester (principal); Z3A.20 20 weeks gestation of pregnancy ==

== ENCOUNTER → 2023-10-02 | Outpatient (CLI) | payer OTHER | LOC: M WHC 13:17 | PROVIDERS: ATTEND Obstetrics & Gynecology | DX: O44.40 Low lying placenta NOS or without hemorrhage, unspecified trimester (principal) ==

== ENCOUNTER → 2023-10-06 | Outpatient (CLI) | payer OTHER ==
[2023-10-06 13:55] LABS: FREE T4 1.39 NG/DL (0.89-1.76); THYROID STIMULATING HORMONE 3.707 uIU/ML (0.55-4.78)
== END ==
LOC: M PLALAB 09:39
PROVIDERS: ATTEND Advanced Practice Midwife
DX: O99.282 Endocrine, nutritional and metabolic diseases complicating pregnancy, second trimester (principal); Z3A.00 Weeks of gestation of pregnancy not specified

== ENCOUNTER → 2023-10-31 | Outpatient (CLI) | payer OTHER | LOC: M WHC 10:42 | PROVIDERS: ATTEND Obstetrics & Gynecology | DX: O44.02 Complete placenta previa NOS or without hemorrhage, second trimester (principal) ==

== ENCOUNTER → 2023-11-17 | Outpatient (CLI) | payer OTHER ==
[2023-11-17 15:59] LABS: HEMOGLOBIN 10.4 g/dl (12.0-15.5); MEAN CORPUSCULAR HEMOGLOBIN 30.5 pg (27.0-33.0); MEAN CORPUSCULAR HGB CONC 33.5 g/dl (32.0-36.5); MEAN CORPUSCULAR VOLUME 90.9 fl (80.0-96.0); PLATELET COUNT, AUTOMATED 286 10^3/uL (150-450); RED BLOOD COUNT 3.41 10^6/uL (4.00-5.40); WHITE BLOOD COUNT 12.2 10^3/uL (4.0-10.0)
[2023-11-17 16:27] LABS: FREE T4 1.29 NG/DL (0.89-1.76)
[2023-11-17 16:28] LABS: THYROID STIMULATING HORMONE 0.978 uIU/ML (0.55-4.78)
[2023-11-17 17:22] LABS: GC DNA AMPLIFICATION NEGATIVE (NEGATIVE)
== END ==
LOC: M PLALAB 11:08
PROVIDERS: ATTEND Obstetrics & Gynecology
DX: O99.282 Endocrine, nutritional and metabolic diseases complicating pregnancy, second trimester (principal); Z3A.00 Weeks of gestation of pregnancy not specified

== ENCOUNTER → 2023-12-19 | Outpatient (CLI) | payer OTHER | LOC: M WHC 11:02 | PROVIDERS: ATTEND Advanced Practice Midwife | DX: O99.283 Endocrine, nutritional and metabolic diseases complicating pregnancy, third trimester (principal); E05.00 Thyrotoxicosis with diffuse goiter without thyrotoxic crisis or storm; O44.40 Low lying placenta NOS or without hemorrhage, unspecified trimester; Z3A.34 34 weeks gestation of pregnancy ==

== ENCOUNTER 2024-01-14 05:04 | Inpatient (IN) | payer OTHER ==
[~2024-01-14] VITALS: Ht 160 cm; Wt 70.5 kg
[2024-01-14] VITALS (10 sets, daily range): BP systolic 109–141; BP diastolic 58–73; TEMP 97.5; O2SAT 98–100
[~2024-01-14 05:04] MED LIST changes: +LEVO200T4 PO
[2024-01-14] MEDS: LACTATED RINGER'S 1000 ML IV STA (05:15)
[2024-01-14 06:04] LABS: HEMATOCRIT 29.1 % (36.0-47.0); HEMOGLOBIN 9.5 g/dl (12.0-15.5); MEAN CORPUSCULAR HEMOGLOBIN 27.2 pg (27.0-33.0); MEAN CORPUSCULAR HGB CONC 32.6 g/dl (32.0-36.5); MEAN CORPUSCULAR VOLUME 83.4 fl (80.0-96.0); PLATELET COUNT, AUTOMATED 261 10^3/uL (150-450); RED BLOOD COUNT 3.49 10^6/uL (4.00-5.40); WHITE BLOOD COUNT 9.1 10^3/uL (4.0-10.0)
[2024-01-14 07:11] LABS: HEPATITIS C VIRUS ABY INDEX < 0.02 INDEX (<0.8)
[2024-01-14] MEDS: LR 1,000 ML IV SCH ×2 (07:14→11:42)
[2024-01-14] MEDS: ceFAZolin SOD 2 GM in IV 1 EA IV ONE (07:14)
[2024-01-14] MEDS: BICITRA 30ML SOLN UDC PO ONE (07:14)
[2024-01-14] MEDS ORDERED: OXYTOCIN INJ 10UNITS/ML 1ML VIAL As Ordered ONE (08:14)
[2024-01-14] MEDS ORDERED: ePHEDrine SULFATE 25 MG/5 ML(5MG/ML) SYRINGE As Ordered ONE (08:14)
[2024-01-14] MEDS ORDERED: fentaNYL 100 MCG/2 ML INJECTION As Ordered ONE (08:14)
[2024-01-14] MEDS ORDERED: MORPHINE PRES-FREE INJ 10 MG/10 ML VIAL As Ordered ONE (08:14)
[2024-01-14] MEDS ORDERED: PHENYLephrine 500MCG 5ML (100MCG/ML) SYRINGE As Ordered ONE (08:14)
[2024-01-14] MEDS ORDERED: ONDANSETRON 4MG 2ML VIAL As Ordered ONE (08:22)
[2024-01-14] MEDS ORDERED: PERCOCET 5MG/325MG TAB PO PRN (08:55)
[2024-01-14] MEDS ORDERED: ACETAMINOPHEN 500 MG TAB PO PRN (08:55)
[2024-01-14] MEDS ORDERED: SIMETHICONE 80MG CHEW TAB PO PRN (08:55)
[2024-01-14] MEDS ORDERED: RHO(D) IMMUNE GLOBULIN/MALTOSE 500MCG(2500IU)/2.2ML VIAL (WINRHO) IM SCH (08:55)
[2024-01-14] MEDS ORDERED: MORPHINE 4 MG/ML 1ML VIAL IV PRN (08:55)
[2024-01-14] MEDS ORDERED: ANUSOL HC CREAM 30GM TOP PRN (08:55)
[2024-01-14] MEDS: DOCUSATE SODIUM 100MG CAPSULE PO SCH (09:00)
[2024-01-14] MEDS: PRENATAL VITAMINS CHEWABLE TABLET PO SCH (09:00)
[2024-01-14] MEDS ORDERED: COLA100C5 PO (09:34)
[2024-01-14] MEDS ORDERED: IBUP80TA PO (09:34)
[2024-01-14] MEDS ORDERED: PERCOCET PO (09:34)
[2024-01-14] MEDS: KETOROLAC 30 MG/ML 1ML VIAL IV SCH (11:24)
[2024-01-14] MEDS: PERCOCET 5MG/325MG TAB PO PRN (11:25)
[2024-01-14] MEDS: OXYTOCIN DRIP 30 UNITS in IV 1 EA IV SCH (11:40)
[2024-01-14] MEDS: ONDANSETRON 4MG 2ML VIAL IV PRN (12:49)
[2024-01-14] MEDS: CALCIUM CARBONATE 500 MG CHEW U/D PO PRN (17:00)
[2024-01-14] MEDS: PROMETHAZINE 25MG/ML 1ML VIAL IV PRN (19:04)
[2024-01-14] MEDS: diphenhydrAMINE 50MG/ML VIAL IV PRN (23:00)
[2024-01-15 02:00] VITALS: BP 110/59; O2SAT 100
[2024-01-15 06:00] VITALS: BP 123/59; O2SAT 100
[2024-01-15 09:22] LABS: HEMATOCRIT 26.1 % (36.0-47.0); HEMOGLOBIN 8.2 g/dl (12.0-15.5); MEAN CORPUSCULAR HEMOGLOBIN 26.5 pg (27.0-33.0); MEAN CORPUSCULAR HGB CONC 31.4 g/dl (32.0-36.5); MEAN CORPUSCULAR VOLUME 84.5 fl (80.0-96.0); PLATELET COUNT, AUTOMATED 234 10^3/uL (150-450); RED BLOOD COUNT 3.09 10^6/uL (4.00-5.40)
[2024-01-15 10:00] VITALS: BP 105/58; O2SAT 100
[2024-01-15 14:00] VITALS: BP 131/65; O2SAT 100
[2024-01-15] MEDS: IBUPROFEN 800 MG TAB PO SCH (16:00)
[2024-01-15 18:00] VITALS: BP 110/61; O2SAT 100
[2024-01-15 22:00] VITALS: BP 127/59; O2SAT 100
[2024-01-16 02:00] VITALS: BP 119/73; O2SAT 100
[2024-01-16 06:00] VITALS: BP 102/62; O2SAT 100
[2024-01-16] MEDS: MEASLES,MUMPS,RUBELLA VACCINE INJ (MMR-II) SC.IMMUN ONE (09:20)
[2024-01-16 10:00] VITALS: BP 119/78; O2SAT 100
== END 2024-01-16 10:42 | disposition home or self-care (01) | DRG 540 ==
LOC: M LDI 05:04 → M OBS 10:25
PROVIDERS: ADMIT Obstetrics & Gynecology; ATTEND Obstetrics & Gynecology
PROC: 10D00Z1 Extraction of Products of Conception, Low, Open Approach (ICD-10-PCS; principal; 2024-01-14 07:30)
DX: O44.20 Partial placenta previa NOS or without hemorrhage, unspecified trimester (principal); O24.429 Gestational diabetes mellitus in childbirth, unspecified control; Z37.0 Single live birth; Z3A.39 39 weeks gestation of pregnancy; O32.1XX0 Maternal care for breech presentation, not applicable or unspecified; Z91.013 Allergy to seafood

== ENCOUNTER 2024-02-11 22:21 | Emergency (ER) | payer OTHER ==
[~2024-02-11] VITALS: Ht 160 cm; Wt 68.5 kg
[~2024-02-11 22:21] MED LIST changes: +IBUP80TA PO; +PERCOCET PO
[2024-02-11 23:49] VITALS: BP 113/52; TEMP 99.5; O2SAT 98
[2024-02-12] MEDS: NS 1,000 ML IV ONE (00:03)
[2024-02-12 00:32] LABS: ALBUMIN 3.5 G/DL (3.2-5.2); ALKALINE PHOSPHATASE 121 U/L (46-116); ALT/SGPT 14 U/L (7.0-40); AST/SGOT 14 U/L (<34); BILIRUBIN,TOTAL 0.4 MG/DL (0.3-1.2); BLOOD UREA NITROGEN 12 MG/DL (9-23); CALCIUM LEVEL 8.7 MG/DL (8.5-10.1); CARBON DIOXIDE LEVEL 24 MMOL/L (20-31); CHLORIDE LEVEL 106 MMOL/L (98-107); CREATININE FOR GFR 0.83 MG/DL (0.55-1.30); GLOMERULAR FILTRATION RATE > 60.0 (>60); GLUCOSE, FASTING 101 MG/DL (60-100); POTASSIUM SERUM 3.9 MMOL/L (3.5-5.1); SODIUM LEVEL 138 MMOL/L (136-145); TOTAL PROTEIN 6.9 G/DL (5.7-8.2)
[2024-02-12 00:55] LABS: BASO % 0.2 % (0.0-1.0); EOS % 0.1 % (0.0-3.0); HEMATOCRIT 30.8 % (36.0-47.0); HEMOGLOBIN 9.7 g/dl (12.0-15.5); LYMPH # 1.3 10^3/uL (1.5-5.0); MEAN CORPUSCULAR HEMOGLOBIN 24.9 pg (27.0-33.0); MEAN CORPUSCULAR HGB CONC 31.5 g/dl (32.0-36.5); MEAN CORPUSCULAR VOLUME 79.2 fl (80.0-96.0); MONO % 7.2 % (2.0-8.0); NEUTROPHILS # 11.6 10^3/uL (1.5-8.5); NEUTROPHILS % 82.7 % (36.0-66.0); PLATELET COUNT, AUTOMATED 350 10^3/uL (150-450); RED BLOOD COUNT 3.89 10^6/uL (4.00-5.40); WHITE BLOOD COUNT 14.1 10^3/uL (4.0-10.0)
[2024-02-12] MEDS ORDERED: ISOVUE-370 76% 100ML VIAL As Ordered ONE (01:08)
[2024-02-12] MEDS: cefTRIAXone SOD 1 GM in D5W MINI-BAG PLUS 50 ML IV ONE (01:18)
[2024-02-12] MEDS ORDERED: BACT800T5 PO (01:54)
== END 2024-02-12 02:32 | disposition home or self-care (01) ==
LOC: M ED 22:21
DX: N10 Acute pyelonephritis (principal); E05.00 Thyrotoxicosis with diffuse goiter without thyrotoxic crisis or storm; Z91.013 Allergy to seafood; Z79.1 Long term (current) use of non-steroidal anti-inflammatories (NSAID); Z79.899 Other long term (current) drug therapy
CPT/HCPCS: 71045; 74177; 80053; 81001; 83605; 85025; 87040; 87088; 87186; 87486; 87581; 87633; 87798; 96374; 99283; J0696; Q9967

== ENCOUNTER 2024-04-14 00:02 | Emergency (ER) | payer OTHER ==
[~2024-04-14] VITALS: Ht 160 cm; Wt 68.6 kg
[~2024-04-14 00:02] MED LIST changes: +BACT800T5 PO
[2024-04-14 00:03] VITALS: BP 124/66; TEMP 96.9; O2SAT 100
== END 2024-04-14 05:15 | disposition home or self-care (01) ==
LOC: M ED 00:02
DX: S50.01XA Contusion of right elbow, initial encounter (principal); S80.02XA Contusion of left knee, initial encounter; Y04.0XXA Assault by unarmed brawl or fight, initial encounter; Z91.013 Allergy to seafood; Z79.1 Long term (current) use of non-steroidal anti-inflammatories (NSAID); Z79.899 Other long term (current) drug therapy; Y92.89 Other specified places as the place of occurrence of the external cause; Y93.89 Activity, other specified; Y99.9 Unspecified external cause status

== ENCOUNTER → 2024-05-03 | Outpatient (CLI) | payer OTHER ==
[2024-05-03 15:27] LABS: BASO # 0.1 10^3/uL (0.0-0.2); BASO % 0.6 % (0.0-1.0); EOS # 0.1 10^3/uL (0.0-0.5); EOS % 1.4 % (0.0-3.0); HEMATOCRIT 36.3 % (36.0-47.0); HEMOGLOBIN 11.1 g/dl (12.0-15.5); LYMPH # 2.3 10^3/uL (1.5-5.0); LYMPH % 26.3 % (24.0-44.0); MEAN CORPUSCULAR HEMOGLOBIN 25.2 pg (27.0-33.0); MEAN CORPUSCULAR HGB CONC 30.6 g/dl (32.0-36.5); MEAN CORPUSCULAR VOLUME 82.5 fl (80.0-96.0); MONO # 0.6 10^3/uL (0.0-0.8); NEUTROPHILS # 5.5 10^3/uL (1.5-8.5); NEUTROPHILS % 64.3 % (36.0-66.0); PLATELET COUNT, AUTOMATED 378 10^3/uL (150-450); WHITE BLOOD COUNT 8.5 10^3/uL (4.0-10.0)
[2024-05-03 15:57] LABS: FERRITIN 7.4 NG/ML (7.3-270.7)
[2024-05-03 15:59] LABS: IRON (FE) 60 UG/DL (50-170); TOTAL IRON BINDING CAPACITY 461 UG/DL (250-425)
[2024-05-03 16:00] LABS: FOLATE 12.85 NG/ML (>5.4)
[2024-05-03 16:02] LABS: FREE T4 0.26 NG/DL (0.89-1.76); VITAMIN B12 LEVEL 306 PG/ML (211-911)
[2024-05-03 16:13] LABS: THYROID STIMULATING HORMONE > 150.000 uIU/ML (0.55-4.78)
== END ==
LOC: M PLALAB 09:39
PROVIDERS: ATTEND Student in an Organized Health Care Education/Training Program
DX: D50.0 Iron deficiency anemia secondary to blood loss (chronic) (principal); E89.0 Postprocedural hypothyroidism; Z86.32 Personal history of gestational diabetes

== ENCOUNTER 2024-09-12 01:36 | Emergency (ER) | payer OTHER ==
[~2024-09-12] VITALS: Ht 160 cm; Wt 60.4 kg
[~2024-09-12 01:36] MED LIST changes: -LEVO750T14 PO; +LEVO75TAB PO
[2024-09-12 05:59] VITALS: BP 135/91; TEMP 98.2; O2SAT 98
[2024-09-12] MEDS ORDERED: CEFD300C PO (06:21)
== END 2024-09-12 06:29 | disposition home or self-care (01) ==
LOC: M ED 01:36
DX: J06.9 Acute upper respiratory infection, unspecified (principal); N39.0 Urinary tract infection, site not specified; F31.9 Bipolar disorder, unspecified; Z79.2 Long term (current) use of antibiotics; Z79.1 Long term (current) use of non-steroidal anti-inflammatories (NSAID)

== ENCOUNTER 2024-10-01 16:14 | Emergency (ER) | payer OTHER ==
[~2024-10-01] VITALS: Ht 160 cm; Wt 62.4 kg
[~2024-10-01 16:14] MED LIST changes: +CEFD300C PO
[2024-10-01 16:18] VITALS: BP 131/66; TEMP 98.5; O2SAT 98
== END 2024-10-01 21:38 | disposition home or self-care (01) ==
LOC: M ED 16:14
DX: S00.91XA Abrasion of unspecified part of head, initial encounter (principal); W01.198A Fall on same level from slipping, tripping and stumbling with subsequent striking against other object, initial encounter; F31.9 Bipolar disorder, unspecified; Y92.410 Unspecified street and highway as the place of occurrence of the external cause; Y93.89 Activity, other specified; Y99.9 Unspecified external cause status; Z91.013 Allergy to seafood; Z79.2 Long term (current) use of antibiotics; Z79.1 Long term (current) use of non-steroidal anti-inflammatories (NSAID)

== ENCOUNTER → 2024-12-02 | Outpatient (REF) | payer OTHER ==
[2024-12-02 20:23] LABS: Trichomonas vaginalis (AMP) NOT DETECTED (NEGATIVE)
[2024-12-02 20:45] LABS: GC DNA AMPLIFICATION NEGATIVE (NEGATIVE)
[2024-12-04 14:23] LABS: HPV APTIMA Not Detected (Not Detected)
== END ==
LOC: M SFHCWAGY 14:54
PROVIDERS: ATTEND Obstetrics & Gynecology
DX: Z12.4 Encounter for screening for malignant neoplasm of cervix (principal); R87.610 Atypical squamous cells of undetermined significance on cytologic smear of cervix (ASC-US)

== ENCOUNTER 2025-04-19 17:38 | Emergency (ER) | payer OTHER ==
[~2025-04-19] VITALS: Ht 160 cm; Wt 68.2 kg
[2025-04-19] MEDS ORDERED: LEVO200T4 PO (18:01)
[2025-04-19] MEDS: NS (Normal Saline) 0.9% 1,000 ML IV ONE (18:24)
[2025-04-19 18:34] LABS: PLATELET COUNT, AUTOMATED 279 10^3/uL (150-450)
[2025-04-19 18:50] LABS: INR 0.97
[2025-04-19 18:52] LABS: CALCIUM LEVEL 8.8 MG/DL (8.5-10.1); CARBON DIOXIDE LEVEL 23 MMOL/L (20-31); CHLORIDE LEVEL 106 MMOL/L (98-107); CREATININE FOR GFR 0.97 MG/DL (0.55-1.30); GLOMERULAR FILTRATION RATE 78.6 (>60); POTASSIUM SERUM 3.7 MMOL/L (3.5-5.1); SODIUM LEVEL 143 MMOL/L (136-145)
[2025-04-19 18:56] LABS: HCG, SERUM QUALITATIVE NEGATIVE (NEGATIVE)
[2025-04-19 19:29] VITALS: BP 121/77; TEMP 99.1; O2SAT 100
[2025-04-19] MEDS ORDERED: HOME MED LIST COMPLETE! XX SCH (19:35)
[2025-04-19] MEDS ORDERED: IBUP80TA PO (19:39)
== END 2025-04-19 19:44 | disposition home or self-care (01) ==
LOC: M ED 17:38
DX: N93.9 Abnormal uterine and vaginal bleeding, unspecified (principal); E03.9 Hypothyroidism, unspecified; Z91.148 Patient's other noncompliance with medication regimen for other reason; Z91.013 Allergy to seafood; Z79.1 Long term (current) use of non-steroidal anti-inflammatories (NSAID); Z79.899 Other long term (current) drug therapy

== ENCOUNTER 2025-07-06 00:17 | Inpatient (IN) | payer OTHER, MEDICAID ==
[~2025-07-06] VITALS: Ht 160 cm; Wt 69.6 kg
[2025-07-06 01:22] LABS: PLATELET COUNT, AUTOMATED 319 10^3/uL (150-450)
[2025-07-06 01:48] LABS: LYMPHOCYTES 5 % (16-44); MONOCYTES 3 % (0-5); NEUTROPHILS 78 % (28-66)
[2025-07-06 01:51] LABS: ALT/SGPT 91.0 U/L (7.0-40); AST/SGOT 104.0 U/L (<34); CALCIUM LEVEL 8.8 MG/DL (8.5-10.1); CARBON DIOXIDE LEVEL 21.0 MMOL/L (20-31); CHLORIDE LEVEL 99.0 MMOL/L (98-107); CREATININE FOR GFR 1.55 MG/DL (0.55-1.30); GLOMERULAR FILTRATION RATE 44.8 (>60); PLATELET ESTIMATE NORMAL (NORMAL); POTASSIUM SERUM 3.8 MMOL/L (3.5-5.1); SODIUM LEVEL 134.0 MMOL/L (136-145)
[2025-07-06 02:09] LABS: APPEARANCE, URINE MANUAL HAZY (CLEAR); BILIRUBIN, URINE MANUAL OBSCURED (NEGATIVE); BLOOD URINE MANUAL OBSCURED (NEGATIVE); COLOR, URINE MANUAL ORANGE (YELLOW); GLUCOSE, URINE (UA) MANUAL OBSCURED mg/dL (NEGATIVE); KETONE, URINE MANUAL OBSCURED mg/dL (NEGATIVE); LEUKOCYTE ESTERASE, URINE MAN OBSCURED (NEGATIVE); NITRITE, URINE MANUAL OBSCURED (NEGATIVE); PH,URINE MAN OBSCURED UNITS (5.0 - 7.0); PROTEIN, URINE MANUAL OBSCURED mg/dL (NEGATIVE); SPECIFIC GRAVITY,URINE MANUAL 1.015 (1.002-1.035); UROBILINOGEN, URINE MANUAL OBSCURED mg/dl (NORMAL)
[2025-07-06 02:17] LABS: WBC, URINE 15-20 /hpf (0-3)
[2025-07-06 02:18] LABS: BACTERIA, URINE LARGE AMOUNT; HYALINE CAST, URINE NONE SEEN /lpf (0-1); SQUAMOUS EPITHELIAL CELL URINE MOD AMOUNT /hpf (SMALL AMT)
[2025-07-06] MEDS: cefTRIAXone SOD 1 GM in DEXTROSE 5% (D5W) ADV/MINI-BAG 50 ML IV ONE ×2 (06:52→09:34)
[2025-07-06] MEDS: ONDANSETRON 4MG 2ML VIAL IV ONE (06:52)
[2025-07-06] MEDS: KETOROLAC 30 MG/ML 1 ML VIAL IV ONE (06:52)
[2025-07-06] MEDS: NS (Normal Saline) 0.9% 1,000 ML IV ONE ×2 (06:53→17:40)
[2025-07-06] MEDS: NS (Normal Saline) 0.9% 1,000 ML IV SCH (09:34)
[2025-07-06] MEDS ORDERED: IBUP80TA PO (10:00)
[2025-07-06] MEDS ORDERED: HOME MED LIST COMPLETE! XX SCH (10:00)
[2025-07-06] MEDS: LEVOTHYROXINE 100 MCG TABLET (0.1 MG) PO SCH (11:56)
[2025-07-06 12:45] LABS: URINE PREG TEST NEGATIVE (NEGATIVE)
[2025-07-06] MEDS: MORPHINE 4 MG/ML 1 ML VIAL IV PRN (13:39)
[2025-07-06] MEDS: HEPARIN SOD 5000 UNITS/ML 1 ML VIAL/SYRINGE SC SCH (14:16)
[2025-07-06 14:50] LABS: FREE T4 1.59 NG/DL (0.89-1.76)
[2025-07-06] MEDS: PERCOCET 5MG/325MG TAB PO PRN (17:19)
[2025-07-07] MEDS ORDERED: diphenhydrAMINE 50 MG/ML VIAL As Ordered ONE (06:30)
[2025-07-07] MEDS: diphenhydrAMINE 50 MG/ML VIAL IV ONE (06:33)
[2025-07-07 07:18] LABS: BASO # 0.1 10^3/uL (0.0-0.2); BASO % 0.4 % (0.0-1.0); EOS # 0.2 10^3/uL (0.0-0.5); EOS % 1.3 % (0.0-3.0); LYMPH # 0.7 10^3/uL (1.5-5.0); LYMPH % 5.4 % (24.0-44.0); MONO # 0.9 10^3/uL (0.0-0.8); MONO % 7.5 % (2.0-8.0); NEUTROPHILS # 10.2 10^3/uL (1.5-8.5); NEUTROPHILS % 83.3 % (36.0-66.0); PLATELET COUNT, AUTOMATED 223 10^3/uL (150-450)
[2025-07-07 07:37] LABS: ALT/SGPT 63.0 U/L (7.0-40); AST/SGOT 79.0 U/L (<34); CALCIUM LEVEL 7.0 MG/DL (8.5-10.1); CARBON DIOXIDE LEVEL 18.0 MMOL/L (20-31); CHLORIDE LEVEL 106.0 MMOL/L (98-107); CREATININE FOR GFR 1.64 MG/DL (0.55-1.30); GLOMERULAR FILTRATION RATE 41.9 (>60); POTASSIUM SERUM 3.8 MMOL/L (3.5-5.1); SODIUM LEVEL 138.0 MMOL/L (136-145)
[2025-07-07] MEDS ORDERED: METOPROLOL TART 12.5 MG PER 1/2 TAB PO SCH (09:00)
[2025-07-07] MEDS: cefTRIAXone SOD 2 GM in DEXTROSE 5% (D5W) ADV/MINI-BAG 50 ML IV SCH (09:08)
[2025-07-07] MEDS: SODIUM BICARBONATE 150 MEQ in D5W 1,000 ML IV SCH (11:28)
[2025-07-07 13:15] VITALS: BP 141/75; TEMP 99.2; O2SAT 95
[2025-07-07 14:30] VITALS: TEMP 102.4
[2025-07-07] MEDS: ACETAMINOPHEN 325 MG TAB PO PRN (14:40)
[2025-07-07 16:00] VITALS: BP 118/65; TEMP 101.7; O2SAT 93
[2025-07-07] MEDS: METOPROLOL TART 12.5 MG PER 1/2 TAB PO ONE (16:18)
[2025-07-07] MEDS: LR 1,000 ML IV ONE (16:58)
[2025-07-07 17:00] VITALS: TEMP 100.4
[2025-07-07 20:04] VITALS: BP 127/77; TEMP 99.5; O2SAT 90
[2025-07-07] MEDS: METOPROLOL TART 12.5 MG PER 1/2 TAB PO SCH (20:11)
[2025-07-08] VITALS (15 sets, daily range): BP systolic 122–154; BP diastolic 73–84; TEMP 97.6–103; O2SAT 73–95
[2025-07-08 05:53] LABS: BASO # 0.1 10^3/uL (0.0-0.2); BASO % 0.5 % (0.0-1.0); EOS # 0.1 10^3/uL (0.0-0.5); EOS % 1.1 % (0.0-3.0); LYMPH # 1.0 10^3/uL (1.5-5.0); LYMPH % 9.0 % (24.0-44.0); MONO # 1.0 10^3/uL (0.0-0.8); MONO % 8.7 % (2.0-8.0); NEUTROPHILS # 8.5 10^3/uL (1.5-8.5); NEUTROPHILS % 78.0 % (36.0-66.0); PLATELET COUNT, AUTOMATED 197 10^3/uL (150-450)
[2025-07-08 06:24] LABS: ALT/SGPT 62.0 U/L (7.0-40); AST/SGOT 91.0 U/L (<34); CALCIUM LEVEL 7.6 MG/DL (8.5-10.1); CARBON DIOXIDE LEVEL 28.0 MMOL/L (20-31); CHLORIDE LEVEL 101.0 MMOL/L (98-107); CREATININE FOR GFR 1.38 MG/DL (0.55-1.30); GLOMERULAR FILTRATION RATE 51.5 (>60); POTASSIUM SERUM 3.0 MMOL/L (3.5-5.1); SODIUM LEVEL 141.0 MMOL/L (136-145)
[2025-07-08 07:49] LABS: C REACTIVE PROTEIN QUANTITATIV 20.65 MG/DL (<1.0)
[2025-07-08] MEDS: KCL 20MEQ IN 0.45NS 1000ML 1,000 ML IV SCH (07:58)
[2025-07-08] MEDS: POTASSIUM CHLORIDE 10MEQ SR TABLET PO ONE ×2 (07:59→19:51)
[2025-07-08] MEDS ORDERED: DOXYCYCLINE HYCLATE 100 MG TABLET PO SCH (09:00)
[2025-07-08] MEDS ORDERED: CEFEPIME HCL 2 GM in DEXTROSE 5% (D5W) ADV/MINI-BAG 50 ML IV SCH (12:20)
[2025-07-08] MEDS: CEFEPIME HCL 2 GM in DEXTROSE 5% (D5W) ADV/MINI-BAG 50 ML IV SCH (14:26)
[2025-07-08] MEDS: LINEZOLID 600 MG TABLET PO SCH (15:43)
[2025-07-08] MEDS: BENZONATATE 100 MG CAPSULE PO PRN (16:34)
[2025-07-09] VITALS (20 sets, daily range): BP systolic 124–147; BP diastolic 70–87; TEMP 98.8–101.4; O2SAT 88–100
[2025-07-09] MEDS: ONDANSETRON 4MG 2ML VIAL IV PRN (05:58)
[2025-07-09 06:07] LABS: PLATELET COUNT, AUTOMATED 214 10^3/uL (150-450)
[2025-07-09 06:40] LABS: EOSINOPHILS 1 % (0-3); LYMPHOCYTES 12 % (16-44); MONOCYTES 12 % (0-5); NEUTROPHILS 74 % (28-66); PLATELET ESTIMATE NORMAL (NORMAL)
[2025-07-09 06:54] LABS: CALCIUM LEVEL 8.1 MG/DL (8.5-10.1); CARBON DIOXIDE LEVEL 24.0 MMOL/L (20-31); CHLORIDE LEVEL 102.0 MMOL/L (98-107); CREATININE FOR GFR 1.17 MG/DL (0.55-1.30); GLOMERULAR FILTRATION RATE 62.8 (>60); POTASSIUM SERUM 3.7 MMOL/L (3.5-5.1); SODIUM LEVEL 140.0 MMOL/L (136-145)
[2025-07-09] MEDS ORDERED: ISOVUE-370 76% 100 ML VIAL As Ordered ONE (09:23)
[2025-07-09] MEDS: guaiFENesin SYRUP 200 MG/10 ML UDC PO PRN (10:59)
[2025-07-10] VITALS (24 sets, daily range): BP systolic 124–140; BP diastolic 68–81; TEMP 97.5–99.9; O2SAT 92–100
[2025-07-10 07:07] LABS: BASO # 0.1 10^3/uL (0.0-0.2); BASO % 0.4 % (0.0-1.0); EOS # 0.2 10^3/uL (0.0-0.5); EOS % 1.3 % (0.0-3.0); LYMPH # 1.8 10^3/uL (1.5-5.0); LYMPH % 13.6 % (24.0-44.0); MONO # 1.5 10^3/uL (0.0-0.8); MONO % 11.5 % (2.0-8.0); NEUTROPHILS # 8.5 10^3/uL (1.5-8.5); NEUTROPHILS % 66.4 % (36.0-66.0); PLATELET COUNT, AUTOMATED 238 10^3/uL (150-450)
[2025-07-10 07:19] LABS: CALCIUM LEVEL 8.0 MG/DL (8.5-10.1); CARBON DIOXIDE LEVEL 25.0 MMOL/L (20-31); CHLORIDE LEVEL 102.0 MMOL/L (98-107); CREATININE FOR GFR 1.02 MG/DL (0.55-1.30); GLOMERULAR FILTRATION RATE 74.0 (>60); POTASSIUM SERUM 3.3 MMOL/L (3.5-5.1); SODIUM LEVEL 140.0 MMOL/L (136-145)
[2025-07-10] MEDS: POTASSIUM CHLORIDE 10MEQ SR TABLET PO ONE (10:20)
[2025-07-11 03:49] VITALS: BP 136/83; TEMP 97.1; O2SAT 94
[2025-07-11 05:59] LABS: BASO # 0.1 10^3/uL (0.0-0.2); BASO % 0.4 % (0.0-1.0); EOS # 0.2 10^3/uL (0.0-0.5); EOS % 1.2 % (0.0-3.0); LYMPH # 1.9 10^3/uL (1.5-5.0); LYMPH % 13.5 % (24.0-44.0); MONO # 1.2 10^3/uL (0.0-0.8); MONO % 8.6 % (2.0-8.0); NEUTROPHILS # 9.6 10^3/uL (1.5-8.5); NEUTROPHILS % 68.9 % (36.0-66.0); PLATELET COUNT, AUTOMATED 311 10^3/uL (150-450)
[2025-07-11 06:15] LABS: CALCIUM LEVEL 8.5 MG/DL (8.5-10.1); CARBON DIOXIDE LEVEL 25.0 MMOL/L (20-31); CHLORIDE LEVEL 102.0 MMOL/L (98-107); CREATININE FOR GFR 0.95 MG/DL (0.55-1.30); GLOMERULAR FILTRATION RATE 80.6 (>60); POTASSIUM SERUM 3.8 MMOL/L (3.5-5.1); SODIUM LEVEL 139.0 MMOL/L (136-145)
[2025-07-11 12:00] VITALS: BP 128/70; TEMP 97.9; O2SAT 98
[2025-07-11] MEDS ORDERED: BACI1CAP PO (13:42)
[2025-07-11] MEDS ORDERED: HIBI4LIQ TOP (13:42)
[2025-07-11] MEDS ORDERED: DOXY-440 PO (13:42)
[2025-07-11] MEDS ORDERED: CEFD1CAP9 PO (13:42)
[2025-07-11] MEDS ORDERED: MUPI2OI TOP (13:42)
[2025-07-11] MEDS: MUPIROCIN 2% OINT 22 GM TUBE TOP SCH (13:48)
[2025-07-14 00:02] LABS: URINE STREP PNEUMONIAE ANTIGEN Not Detected (Not Detected)
[2025-07-14 20:53] LABS: MYCOPLASMA PNEUMONIAE IGG 3.42 (<=0.90); MYCOPLASMA PNEUMONIAE IGM 157.0 U/mL (<770)
== END 2025-07-11 15:50 | disposition home or self-care (01) | DRG 720 ==
LOC: M ED 00:17 → M ED INP 09:03 → EEVIPCON 09:03 → M PCU 07-07 13:18 → M MS4PR 07-10 16:30
PROVIDERS: ADMIT Internal Medicine; ATTEND General Practice
DX: A41.9 Sepsis, unspecified organism (principal); J15.212 Pneumonia due to Methicillin resistant Staphylococcus aureus; N17.9 Acute kidney failure, unspecified; E87.20 Acidosis, unspecified; J98.11 Atelectasis; E03.9 Hypothyroidism, unspecified; N39.0 Urinary tract infection, site not specified; N10 Acute pyelonephritis; L29.89 Other pruritus; D64.9 Anemia, unspecified; E87.6 Hypokalemia; Z91.013 Allergy to seafood; Z79.890 Hormone replacement therapy